=== PATIENT | male | born 1935 | race Caucasian/White ===

== ENCOUNTER 2022-05-14 12:07 | Observation (INO) | payer MEDICARE, BC ==
[2022-05-14 13:12] LABS: Basophils # (A) 0.1 k/uL (0-0.2); Basophils % (A) 2 %; Eosinophils # (A) 0.4 k/uL (0-0.7); Eosinophils % (A) 6 %; HCT 48.7 % (39.0-53.0); HGB 16.6 gm/dL (13.0-17.5); Lymphocytes # (A) 1.3 k/uL (1.0-4.8); Lymphocytes % (A) 19 %; MCH 32.1 pg (25.0-35.0); MCV 94.5 fL (80.0-100.0); Mean Platelet Volume 9.1; Monocytes # (A) 0.7 k/uL (0-1.0); Monocytes % (A) 11 %; Neutrophils # (A) 4.1 k/uL (1.3-7.7); Neutrophils % (A) 60 %; Platelet Count 141 k/uL (150-450); RBC 5.15 m/uL (4.30-5.90); RDW 13.3 % (11.5-15.5); WBC 6.8 k/uL (3.8-10.6)
--- NOTE | 2022-05-14 13:37 | ED ---
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 He denies any overt fevers chills or sweats he has exertional dyspnea however. He again is gotten worse today. 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 No other new complaints or modifying fa ctors at this time. He denies any cough or phlegm production. Also no history of COPD or emphysema he states MD Complaint: shortness of breath - Related Data Home Medications Medication Instructions Recorded Confirmed Aspirin EC [Ecotrin Low Dose] 81 mg PO DAILY 05/14/22 05/14/22 Clopidogrel [Plavix] 75 mg PO DAILY 05/14/22 05/14/22 Empagliflozin [Jardiance] 25 mg PO DAILY 05/14/22 05/14/22 Ergocalciferol (Vitamin D2) 1,250 mcg PO WEEKLY 05/14/22 05/14/22 [Drisdol (50,000 Iu)] Escitalopram [Lexapro] 10 mg PO HS 05/14/22 05/14/22 Insulin Glargine,Hum.rec.anlog 1 dose SQ AC-SUPPER 05/14/22 05/14/22 [Lantus Solostar Pen] Isosorbide Mononitrate ER [Imdur] 30 mg PO DAILY 05/14/22 05/14/22 Rosuvastatin [Crestor] 10 mg PO Q48H 05/14/22 05/14/22 carvediloL [Coreg] 12.5 mg PO BID 05/14/22 05/14/22 lisinopriL [Zestril] 5 mg PO DAILY 05/14/22 05/14/22 Allergies Allergy/AdvReac Type Severity Reaction Status Date / Time No Known Allergies Allergy Verified 05/14/22 13:49 Review of Systems ROS Statement: Those systems with pertinent positive or pertinent negative responses have been documented in the HPI. ROS Other: All systems not noted in ROS Statement are negative. Past Medical History Past Medical History: Chest Pain / Angina, Diabetes Mellitus, Hypertension Additional Past Medical History / Comment(s): rheumatic fever as child. heart murmur History of Any Multi-Drug Resistant Organisms: None Reported Additional Past Surgical History / Comment(s): open heart surgery for aortic valve Past Psychological History: No Psychological Hx Reported Smoking Status: Never smoker Past Alcohol Use History: None Reported Past Drug Use History: None Reported General Exam - General Exam Comments Initial Comments: This is a well-developed well-nourished awake alert oriented 4 male Limitations: no limitations General appearance: alert, anxious Head exam: Present: atraumatic, normocephalic, normal inspection Eye exam: Present: normal appearance, PERRL, EOMI. Absent: scleral icterus, conjunctival injection, periorbital swelling ENT exam: Present: normal exam, mucous membranes moist Neck exam: Present: normal inspection, full ROM, other. Absent: tenderness, meningismus, lymphadenopathy Respiratory exam: Present: decreased breath sounds (No stridor JVD or bruits), other (Basilar crepitus). Absent: respiratory distress, wheezes, rales, rhonchi, stridor Cardiovascular Exam: Present: normal rhythm, bradycardia, normal heart sounds. Absent: systolic murmur, diastolic murmur, rubs, gallop, clicks GI/Abdominal exam: Present: soft, normal bowel sounds. Absent: distended, tenderness, guarding, rebound, rigid Extremities exam: Present: normal inspection, full ROM, normal capillary refill. Absent: tenderness, pedal edema, joint swelling, calf tenderness Back exam: Present: normal inspection Neurological exam: Present: alert, oriented X3, CN II-XII intact Psychiatric exam: Present: normal affect, normal mood Skin exam: Present: warm, dry, intact, normal color. Absent: rash Course Vital Signs 05/14/22 05/14/22 12:11 13:06 Temperature 97.6 F Pulse Rate 48 L 92 Respiratory 20 Rate Blood Pressure 122/66 O2 Sat by Pulse 92 L Oximetry Medical Decision Making - Medical Decision Making I did evaluate the patient again patient still complains of his breath he now complains of some rhinorrhea. No other symptoms patient does have evidence and presents as a COPD exacerbation did discuss the case with patient family as well as Dr. Macedo. Patient be admitted and placed on treatment Cephid is pending at this time Was pt. sent in by a medical professional or institution? @ No-[by , ZACK, PROGRAM SUPERVISOR, urgent care, hospital, or [facility]] Did you speak to anyone other than the patient for history? @ Family-[EMS, parent, family, police, friend?] Did you review nursing and triage notes? @ Yes and agree-[agree or disagree, why?] Were old charts reviewed? @ Compared-[outside hosp., previous admissions, EMS record, old EKG, old radiological studies, urgent care reports/, [facility] records?] Differential Diagnosis? @ Dyspnea secondary to COPD exacerbation cardiovascular disease appears be secondary to COPD exacerbation yes-[chest pain, altered mental status abdominal pain women, abdominal pain men, vaginal bleeding, weakness, fever, dyspnea, syncope, headache, dizziness, GI bleed, back pain, seizure] EKG interpreted by me (3pts min.)? @ -As as above [none] X-rays interpreted by me (1pt min.)? @S as above-[none] CT interpreted by me (1pt min.)? @ -[none] U/S interpreted by me (1pt. min.)? @ -[none] What testing was considered but not performed? (CT, X-rays, U/S, labs)? Why? @ [CT, X-rays, U/S, labs? Why?] What meds were considered but not given? Why? @ -[none] Did you discuss the management of the patient with other professionals? @ Dr. Bravo-[professionals i.e. ZACK Kramer, PROGRAM SUPERVISOR, Lab, RT, Psych Nurse, Certified Marine Mechanic, Gasoline Finisher, Teacher, Travel Assistant, upper caser? Give summary] Did you reconcile home meds? @ -[none] Was smoking cessation discussed for >3mins.? @ -[none] Was critical care preformed (if so, how long)? @ -[none] Were there social determinants of health that impacted care today? How? (Homelessness, low income, unemployed, alcoholism, drug addiction, transportation, low edu. Level, literacy, decrease access to med. care, correction, rehab)? @ Not applicable -[Homelessness, low income, unemployed, alcoholism, drug addiction, transportation, low edu. Level, literacy, decrease access to med. c are, correction, rehab?] Was there de-escalation of care discussed even if they declined? (Discuss DNR or withdrawal of care, Hospice)? @ -[Discuss DNR or withdrawal of care, Hospice?] What co-morbidities impacted this encounter? (DM, HTN, Smoking, COPD, CAD, Cancer, CVA, Hep., AIDS, mental health diagnosis, sleep apnea, morbid obesity)? @ -[DM, HTN, Smoking, COPD, CAD, Cancer, CVA, Hep., AIDS, mental health diagnosis, sleep apnea, morbid obesity?] Was patient admitted / discharged? @ He was admitted-[hospital course] Undiagnosed new problem with uncertain prognosis? @ -[none] Drug Therapy requiring intensive monitoring for toxicity (Heparin, Nitro, Insulin, Cardizem)? @ -[none] Were any procedures done? @ -[none] Diagnosis/symptom? @ COPD exacerbation -[default] Acute, or Chronic, or Acute on Chronic? @ Acute exacerbation-[default] Uncomplicated (without systemic symptoms) or Complicated (systemic symptoms)? @ -[default] Side effects of treatment? @ -[none] Exacerbation, Progression, or Severe Exacerbation] @ Acute exacerbation -[no] Poses a threat to life or bodily function? @ -[no] - Lab Data Result diagrams: 05/14/22 13:51 05/14/22 13:51 Lab Results 05/14/22 05/14/22 05/14/22 Range/Units 12:53 12:53 12:53 WBC 6.8 (3.8-10.6) k/uL RBC 5.15 (4.30-5.90) m/uL Hgb 16.6 (13.0-17.5) gm/dL Hct 48.7 (39.0-53.0) % MCV 94.5 (80.0-100.0) fL MCH 32.1 (25.0-35.0) pg MCHC 34.0 (31.0-37.0) g/dL RDW 13.3 (11.5-15.5) % Plt Count 141 L (150-450) k/uL MPV 9.1 Neutrophils % 60 % Lymphocytes % 19 % Monocytes % 11 % Eosinophils % 6 % Basophils % 2 % Neutrophils # 4.1 (1.3-7.7) k/uL Lymphocytes # 1.3 (1.0-4.8) k/uL Monocytes # 0.7 (0-1.0) k/uL Eosinophils # 0.4 (0-0.7) k/uL Basophils # 0.1 (0-0.2) k/uL PT (9.0-12.0) sec INR (<1.2) APTT (22.0-30.0) sec Sodium (137-145) mmol/L Potassium (3.5-5.1) mmol/L Chloride (98-107) mmol/L Carbon Dioxide (22-30) mmol/L Anion Gap mmol/L BUN (9-20) mg/dL Creatinine (0.66-1.25) mg/dL Est GFR (CKD-EPI)AfAm (>60 ml/min/1.73 sqM) Est GFR (CKD-EPI)NonAf (>60 ml/min/1.73 sqM) Glucose (74-99) mg/dL Plasma Lactic Acid Robert 1.4 (0.7-2.0) mmol/L Calcium (8.4-10.2) mg/dL Magnesium (1.6-2.3) mg/dL Total Bilirubin (0.2-1.3) mg/dL AST (17-59) U/L ALT (4-49) U/L Alkaline Phosphatase (38-126) U/L Troponin I (0.000-0.034) ng/mL NT-Pro-B Natriuret Pep 353 pg/mL Total Protein (6.3-8.2) g/dL Albumin (3.5-5.0) g/dL 05/14/22 05/14/22 05/14/22 Range/Units 13:51 13:51 13:51 WBC 6.9 (3.8-10.6) k/uL RBC 5.01 (4.30-5.90) m/uL Hgb 16.3 (13.0-17.5) gm/dL Hct 47.4 (39.0-53.0) % MCV 94.5 (80.0-100.0) fL MCH 32.6 (25.0-35.0) pg MCHC 34.5 (31.0-37.0) g/dL RDW 13.2 (11.5-15.5) % Plt Count 160 (150-450) k/uL MPV 8.1 Neutrophils % 62 % Lymphocytes % 20 % Monocytes % 8 % Eosinophils % 6 % Basophils % 2 % Neutrophils # 4.2 (1.3-7.7) k/uL Lymphocytes # 1.4 (1.0-4.8) k/uL Monocytes # 0.5 (0-1.0) k/uL Eosinophils # 0.4 (0-0.7) k/uL Basophils # 0.1 (0-0.2) k/uL PT (9.0-12.0) sec INR (<1.2) APTT (22.0-30.0) sec Sodium 137 (137-145) mmol/L Potassium 4.8 (3.5-5.1) mmol/L Chloride 105 (98-107) mmol/L Carbon Dioxide 22 (22-30) mmol/L Anion Gap 10 mmol/L BUN 20 (9-20) mg/dL Creatinine 0.98 (0.66-1.25) mg/dL Est GFR (CKD-EPI)AfAm 82 (>60 ml/min/1.73 sqM) Est GFR (CKD-EPI)NonAf 71 (>60 ml/min/1.73 sqM) Glucose 210 H (74-99) mg/dL Plasma Lactic Acid Robert (0.7-2.0) mmol/L Calcium 9.1 (8.4-10.2) mg/dL Magnesium 2.0 (1.6-2.3) mg/dL Total Bilirubin 1.4 H (0.2-1.3) mg/dL AST 26 (17-59) U/L ALT 29 (4-49) U/L Alkaline Phosphatase 113 (38-126) U/L Troponin I <0.012 (0.000-0.034) ng/mL NT-Pro-B Natriuret Pep pg/mL Total Protein 7.9 (6.3-8.2) g/dL Albumin 4.5 (3.5-5.0) g/dL 05/14/22 Range/Units 13:51 WBC (3.8-10.6) k/uL RBC (4.30-5.90) m/uL Hgb (13.0-17.5) gm/dL Hct (39.0-53.0) % MCV (80.0-100.0) fL MCH (25.0-35.0) pg MCHC (31.0-37.0) g/dL RDW (11.5-15.5) % Plt Count (150-450) k/uL MPV Neutrophils % % Lymphocytes % % Monocytes % % Eosinophils % % Basophils % % Neutrophils # (1.3-7.7) k/uL Lymphocytes # (1.0-4.8) k/uL Monocytes # (0-1.0) k/uL Eosinophils # (0-0.7) k/uL Basophils # (0-0.2) k/uL PT 11.7 (9.0-12.0) sec INR 1.1 (<1.2) APTT 29.4 (22.0-30.0) sec Sodium (137-145) mmol/L Potassium (3.5-5.1) mmol/L Chloride (98-107) mmol/L Carbon Dioxide (22-30) mmol/L Anion Gap mmol/L BUN (9-20) mg/dL Creatinine (0.66-1.25) mg/dL Est GFR (CKD-EPI)AfAm (>60 ml/min/1.73 sqM) Est GFR (CKD-EPI)NonAf (>60 ml/min/1.73 sqM) Glucose (74-99) mg/dL Plasma Lactic Acid Robert (0.7-2.0) mmol/L Calcium (8.4-10.2) mg/dL Magnesium (1.6-2.3) mg/dL Total Bilirubin (0.2-1.3) mg/dL AST (17-59) U/L ALT (4-49) U/L Alkaline Phosphatase (38-126) U/L Troponin I (0.000-0.034) ng/mL NT-Pro-B Natriuret Pep pg/mL Total Protein (6.3-8.2) g/dL Albumin (3.5-5.0) g/dL - EKG Data -: EKG Interpreted by Me EKG Comments: EKG evaluated by me and interpreted by me showed a sinus rhythm with premature complexes rate 93. Interval 189 QRS duration 123 QT since QTC 33/433 left anterior fascicular block poor R-wave progression - Radiology Data Interpreted by me: Imaging turgor by me shows no acute processes. Disposition Clinical Impression: Acute exacerbation of chronic obstructive pulmonary disease, Dyspnea Disposition: ADMITTED IP TO THIS HOSP Condition: Stable Referrals: Shaquille Bravo MD [Primary Care Provider] - 1-2 days Decision Date: 05/14/22 Decision Time: 17:00
--- NOTE | 2022-05-14 13:56 | XR ---
EXAMINATION TYPE: XR chest 2V DATE OF EXAM: 05/14/2022 COMPARISON: None INDICATION: Difficulty breathing TECHNIQUE: Frontal and lateral views of the chest are obtained. FINDINGS: The heart size is normal. Sternotomy wires are present from prior cardiac valve surgery. Epicardial leads remain present. The pulmonary vasculature is normal. The lungs are clear. IMPRESSION: 1. No acute pulmonary process.
[2022-05-14 14:05] LABS: Basophils # (A) 0.1 k/uL (0-0.2); Basophils % (A) 2 %; Eosinophils # (A) 0.4 k/uL (0-0.7); Eosinophils % (A) 6 %; HCT 47.4 % (39.0-53.0); HGB 16.3 gm/dL (13.0-17.5); Lymphocytes # (A) 1.4 k/uL (1.0-4.8); Lymphocytes % (A) 20 %; MCH 32.6 pg (25.0-35.0); MCHC 34.5 g/dL (31.0-37.0); MCV 94.5 fL (80.0-100.0); Mean Platelet Volume 8.1; Monocytes # (A) 0.5 k/uL (0-1.0); Monocytes % (A) 8 %; Neutrophils # (A) 4.2 k/uL (1.3-7.7); Neutrophils % (A) 62 %; Platelet Count 160 k/uL (150-450); RBC 5.01 m/uL (4.30-5.90); RDW 13.2 % (11.5-15.5); WBC 6.9 k/uL (3.8-10.6)
[2022-05-14 14:16] LABS: Albumin 4.5 g/dL (3.5-5.0); Calcium 9.1 mg/dL (8.4-10.2); Potassium 4.8 mmol/L (3.5-5.1); Total Bilirubin 1.4 mg/dL (0.2-1.3); Total Protein 7.9 g/dL (6.3-8.2)
[2022-05-14 14:21] LABS: INR 1.1 (<1.2); Partial Thromboplastin Time 29.4 sec (22.0-30.0); Prothrombin Time 11.7 sec (9.0-12.0)
[2022-05-14] MEDS ORDERED: IPRATROPIUM-ALBUTEROL 3 ML NEB INHALATION STA (18:11)
[2022-05-14] MEDS ORDERED: methylPREDNISolone SOD SUCCI 125 MG/2 ML VIAL IV STA (18:11)
[2022-05-14] MEDS ORDERED: ACETAMINOPHEN TAB 325 MG TAB PO PRN (18:17)
[2022-05-14] MEDS ORDERED: NALOXONE 0.4 MG/ML 1 ML VIAL IVP PRN (18:17)
[2022-05-14] MEDS ORDERED: DEXTROSE 50% SYRINGE 50 ML IVP PRN ×4 (18:20→21:54)
[2022-05-14] MEDS ORDERED: ESCITALOPRAM 10 MG TAB PO SCH (21:00)
[2022-05-14 21:40] LABS: Glucose,Whole Blood 265 mg/dL (70-110)
--- NOTE | 2022-05-14 21:45 | CT ---
EXAM: CT Angiography Chest With Intravenous Contrast CLINICAL HISTORY: ITS.REASON CT Reason: PE suspected TECHNIQUE: Axial computed tomographic angiography images of the chest with intravenous contrast. CTDI is 18.47 mGy and DLP is 410 mGy-cm. This CT exam was performed using one or more of the following dose reduction techniques: automated exposure control, adjustment of the mA and/or kV according to patient size, and/or use of iterative reconstruction technique. MIP reconstructed images were created and reviewed. COMPARISON: No relevant prior studies available. FINDINGS: LUNGS: There is no focal infiltrate. There is no pleural effusion or pneumothorax. The tracheobronchial tree is patent. Dependent atelectasis. HEART: Cardiomegaly. No pericardial effusion. Prosthetic aortic valve. Sternotomy wires. VASCULATURE: No acute pulmonary embolism. Atherosclerotic changes. THYROID: Within normal limits. MEDIASTINUM + LYMPH NODES: There are no pathologically enlarged mediastinal, hilar, or axillary lymph nodes. SUPERIOR ABDOMEN: Hepatic steatosis. MUSCULOSKELETAL: Degenerative changes of the spine. IMPRESSION: No acute pulmonary embolism.
[2022-05-14] MEDS: carvediloL 12.5 MG TAB PO SCH (22:00)
[2022-05-14] MEDS: INSULIN ASPART (NovoLOG) 100 UNIT/ML VIAL SQ SCH (22:11)
[2022-05-14] MEDS: methylPREDNISolone SOD SUCCI 125 MG/2 ML VIAL IV SCH (23:06)
[2022-05-15 01:53] VITALS: RESP 16; TEMP 97.6
[2022-05-15 05:56] LABS: Glucose,Whole Blood 265 mg/dL (70-110)
[2022-05-15] MEDS: methylPREDNISolone SOD SUCCI 125 MG/2 ML VIAL IV SCH ×2 (06:08→12:46)
[2022-05-15] MEDS: INSULIN ASPART (NovoLOG) 100 UNIT/ML VIAL SQ SCH ×2 (06:09→12:46)
[2022-05-15] MEDS: carvediloL 12.5 MG TAB PO SCH (06:09)
[2022-05-15] MEDS: IPRATROPIUM-ALBUTEROL 3 ML NEB INHALATION PRN ×2 (07:43→11:43)
[2022-05-15 08:01] VITALS: BP 108/60
[2022-05-15] MEDS ORDERED: lisinopriL 5 MG TAB PO SCH (09:00)
[2022-05-15] MEDS ORDERED: CLOPIDOGREL 75 MG TAB PO SCH (09:00)
[2022-05-15] MEDS ORDERED: ASPIRIN 81 MG PO SCH (09:00)
[2022-05-15] MEDS ORDERED: ATORVASTATIN 20 MG TAB PO SCH (09:00)
[2022-05-15] MEDS ORDERED: ISOSORBIDE MONONITRATE ER 30 MG TAB.ER.24H PO SCH (09:00)
[2022-05-15] MEDS ORDERED: DAPAGLIFLOZIN PROPANEDIOL 10 MG TABLET PO SCH (09:00)
[2022-05-15 11:59] VITALS: PULSE 74
[2022-05-15 12:28] LABS: Glucose,Whole Blood 277 mg/dL (70-110)
--- NOTE | 2022-05-15 19:28 | P.HPIM ---
History of Present Illness H&P Date: 05/15/22 Chief Complaint: Worsening dyspnea History and Physical and Discharge Summary: This is a pleasant 86-year-old gentleman with past medical history of CABG/AVR, diabetes mellitus, hypertension, rheumatic fever, presented to the ER with worsening shortness of breath. 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 Complains of some nasal congestion, denies sore throat or plugged ears. Denies lightheadedness dizziness or focal deficits. Denies headache. Denies chest pain, palpitations. Troponin negative. EKG reporting sinus rhythm, left anterior fascicular block, PVCs. Electrolytes within normal limits. Reports has not been around anyone sick. Afebrile, normal WBC. D-dimer elevated 1.57. Chest CTA reported no acute PE. Chest x-ray reported no acute pulmonary pro cess. Influenza type a, type B, RSV and Covid not detected. A1c 8.4. BUN 20, creatinine 0.98. O2 sat of 92% on room air reported on arrival; with reports of patient did been into the mid 80s while resting. Supplements Oxygen, IV steroids, nebulized bronchodilators initiated with significant clinical improvement. Maintaining O2 sats in the mid 90s on 2 L nasal cannula. O2 sat 86% on room air at rest and will require Oxygen at discharge. Review of Systems ROS Statement: Those systems with pertinent positive or pertinent negative responses have been documented in the HPI. ROS Other: All systems not noted in ROS Statement are negative. Past Medical History Past Medical History: Chest Pain / Angina, Diabetes Mellitus, Hypertension Additional Past Medical History / Comment(s): rheumatic fever as child. heart murmur History of Any Multi-Drug Resistant Organisms: None Reported Additional Past Surgical History / Comment(s): open heart surgery for aortic valve Past Anesthesia/Blood Transfusion Reactions: No Reported Reaction Past Psychological History: No Psychological Hx Reported Smoking Status: Never smoker Past Alcohol Use History: None Reported Past Drug Use History: None Reported Medications and Allergies Home Medications Medication Instructions Recorded Confirmed Type Aspirin EC [Ecotrin Low Dose] 81 mg PO DAILY 05/14/22 05/14/22 History Clopidogrel [Plavix] 75 mg PO DAILY 05/14/22 05/14/22 History Empagliflozin [Jardiance] 25 mg PO DAILY 05/14/22 05/14/22 History Ergocalciferol (Vitamin D2) 1,250 mcg PO WEEKLY 05/14/22 05/14/22 History [Drisdol (50,000 Iu)] Escitalopram [Lexapro] 10 mg PO HS 05/14/22 05/14/22 History Insulin Glargine,Hum.rec.anlog 1 dose SQ AC-SUPPER 05/14/22 05/14/22 History [Lantus Solostar Pen] Isosorbide Mononitrate ER [Imdur] 30 mg PO DAILY 05/14/22 05/14/22 History Rosuvastatin [Crestor] 10 mg PO Q48H 05/14/22 05/14/22 History carvediloL [Coreg] 12.5 mg PO BID 05/14/22 05/14/22 History lisinopriL [Zestril] 5 mg PO DAILY 05/14/22 05/14/22 History Albuterol Inhaler [Ventolin Hfa 2 puff INHALATION Q6H PRN #90 mcg 05/15/22 Rx Inhaler] Azithromycin [Zithromax Z Pack] 1 tab PO DIRECTED #6 tab 05/15/22 Rx Budesonide/Formoterol Fumarate 2 puff INHALATION BID #10.2 gm 05/15/22 Rx [Symbicort 80-4.5 Mcg Inhaler] predniSONE 10 mg PO DIRECTED #30 tab 05/15/22 Rx Allergies Allergy/AdvReac Type Severity Reaction Status Date / Time No Known Allergies Allergy Verified 05/14/22 13:49 Physical Exam Vitals: Vital Signs Temp Pulse Pulse Resp BP BP Pulse Ox 05/15/22 11:57 74 05/15/22 11:43 72 05/15/22 08:07 78 05/15/22 08:01 74 108/60 98 05/15/22 07:47 76 95 05/15/22 01:50 97.6 F 73 16 102/58 95 05/14/22 20:10 81 05/14/22 20:00 97.3 F L 77 18 145/61 94 L 05/14/22 19:58 74 05/14/22 18:00 66 18 118/64 95 05/14/22 16:00 72 18 108/75 97 05/14/22 13:06 92 05/14/22 12:11 97.6 F 48 L 20 122/66 92 L Intake and Output 05/14/22 05/15/22 05/15/22 22:59 06:59 14:59 Intake Total 240 Balance 240 Intake: Oral 240 Other: Voiding Method Toilet Diaper Incontinent # Voids 1 1 Weight 83.461 kg PHYSICAL EXAM: VITAL SIGNS: [As above] GENERAL: Sitting up at side of bed, no acute distress HEENT: Conjunctivae normal. eyes normal. Oral mucosa moist NECK: Supple, No JVD. No thyroid enlargement. No LNs. CARDIOVASCULAR: S1, S2 regular. Systolic murmur RESPIRATION: Breath sounds diminished in the bases. No rhonchi or crackles. No bronchial breathing. ABDOMEN: Soft, nontender . No guarding. no masses palpable. No ascites, No hepatosplenomegaly.Bowel sounds heard. LEGS: No edema. no swelling PSYCHIATRY: Alert and oriented X3, mood and affect normal. NERVOUS SYSTEM: Cranial N 2-12 grossly normal. No focal deficits. Strength and sensation grossly intact.. Skin: Warm and dry, no rash Results CBC & Chem 7: 05/14/22 13:51 05/14/22 13:51 Labs: Abnormal Lab Results - Last 24 Hours (Table) 05/14/22 05/14/22 05/14/22 Range/Units 12:53 13:47 13:51 Plt Count 141 L (150-450) k/uL D-Dimer 1.57 H (<0.60) mg/L FEU Glucose 210 H (74-99) mg/dL POC Glucose (mg/dL) (70-110) mg/dL Hemoglobin A1c (0.0-6.0) % Total Bilirubin 1.4 H (0.2-1.3) mg/dL 05/14/22 05/14/22 05/15/22 Range/Units 13:51 21:38 05:54 Plt Count (150-450) k/uL D-Dimer (<0.60) mg/L FEU Glucose (74-99) mg/dL POC Glucose (mg/dL) 265 H 265 H (70-110) mg/dL Hemoglobin A1c 8.4 H (0.0-6.0) % Total Bilirubin (0.2-1.3) mg/dL Thrombosis Risk Factor Assmnt - Choose All That Apply Each Factor Represents 1 point: Abnormal pulmonary function (COPD), Obesity (BMI >25) Each Risk Factor Represents 3 Points: Age 75 years or older Thrombosis Risk Factor Assessment Total Risk Factor Score: 5 Thrombosis Risk Factor Assessment Level: High Risk Assessment and Plan Assessment: Acute COPD exacerbation Acute hypoxic respiratory failure secondary to the above Diabetes mellitus, A1c 8.4 CAD, hx of CABG/AVR History of rheumatic fever Plan: Continue on current medication regime ,monitoring and symptomatic treatment. Patient reports he feels better. Denies chest pain, palpitations or increased shortness of breath. Significant clinical improvement. The patient will be discharged home today in a stable condition with guarded prognosis, on prednisone taper, albuterol rescue inhaler, Symbicort, Z-Palmer and oxygen, as his O2 sat was 86% at rest. Patient has been advised to follow-up with PCP in 3 days. Discharge Medication List Aspirin EC [Ecotrin Low Dose] 81 mg PO DAILY 05/14/22 [History] Clopidogrel [Plavix] 75 mg PO DAILY 05/14/22 [History] Empagliflozin [Jardiance] 25 mg PO DAILY 05/14/22 [History] Ergocalciferol (Vitamin D2) [Drisdol (50,000 Iu)] 1,250 mcg PO WEEKLY 05/14/22 [History] Escitalopram [Lexapro] 10 mg PO HS 05/14/22 [History] Insulin Glargine,Hum.rec.anlog [Lantus Solostar Pen] 1 dose SQ AC-SUPPER 05/14/22 [History] Isosorbide Mononitrate ER [Imdur] 30 mg PO DAILY 05/14/22 [History] Rosuvastatin [Crestor] 10 mg PO Q48H 05/14/22 [History] carvediloL [Coreg] 12.5 mg PO BID 05/14/22 [History] lisinopriL [Zestril] 5 mg PO DAILY 05/14/22 [History] Albuterol Inhaler [Ventolin Hfa Inhaler] 2 puff INHALATION Q6H PRN #90 mcg 05/15/22 [Rx] Azithromycin [Zithromax Z Pack] 1 tab PO DIRECTED #6 tab 05/15/22 [Rx] Budesonide/Formoterol Fumarate [Symbicort 80-4.5 Mcg Inhaler] 2 puff INHALATION BID #10.2 gm 05/15/22 [Rx] predniSONE 10 mg PO DIRECTED #30 tab 05/15/22 [Rx] The impression and plan of care has been dictated as directed. : I performed a history and examination of this patient, discussed the same with the dictator. I agree with the dictator's note ,documented as a scribe. Any additional findings or plans will be noted.
[2022-05-21] MEDS ORDERED: ERGOCALCIFEROL 1,250 MCG (50,000 IU) CAPSULE PO SCH (09:00)
== END 2022-05-15 13:55 | disposition home or self-care (01) ==
LOC: EC 12:07 → INTOOBSV 18:17 → 4SSUR 18:17 → 5NMEDONC 20:37 → 1SOBS 21:20
PROVIDERS: ADMIT Family Medicine; ATTEND Family Medicine
DX: J44.1 Chronic obstructive pulmonary disease with (acute) exacerbation (principal); J96.01 Acute respiratory failure with hypoxia; I25.10 Atherosclerotic heart disease of native coronary artery without angina pectoris; E11.9 Type 2 diabetes mellitus without complications; I10 Essential (primary) hypertension; I69.354 Hemiplegia and hemiparesis following cerebral infarction affecting left non-dominant side; Z20.822 Contact with and (suspected) exposure to COVID-19; Z95.1 Presence of aortocoronary bypass graft; Z95.4 Presence of other heart-valve replacement; Z79.82 Long term (current) use of aspirin; Z79.02 Long term (current) use of antithrombotics/antiplatelets; Z79.84 Long term (current) use of oral hypoglycemic drugs; Z79.899 Other long term (current) drug therapy; Z79.4 Long term (current) use of insulin; Z79.51 Long term (current) use of inhaled steroids
CPT/HCPCS: 96372 ×2; 96376 ×2; 96374; 99285; 36415; 94640 ×2; 94760; 93005; 85379; 83880; 80053; 83605; 83735; 84484; 85025; 85610; 85730; 83036; 87636; 71046; 71275; G0378 ×2; J2930 ×2

== ENCOUNTER 2022-12-15 10:27 | Inpatient (IN) | payer MEDICARE, BC ==
[2022-12-15 11:14] LABS: Basophils # (A) 0.1 k/uL (0-0.2); Basophils % (A) 1 %; Eosinophils # (A) 0.5 k/uL (0-0.7); Eosinophils % (A) 6 %; HCT 47.2 % (39.0-53.0); HGB 16.4 gm/dL (13.0-17.5); Lymphocytes # (A) 1.5 k/uL (1.0-4.8); Lymphocytes % (A) 20 %; MCH 32.8 pg (25.0-35.0); MCHC 34.7 g/dL (31.0-37.0); MCV 94.7 fL (80.0-100.0); Mean Platelet Volume 8.3; Monocytes # (A) 0.8 k/uL (0-1.0); Monocytes % (A) 10 %; Neutrophils # (A) 4.6 k/uL (1.3-7.7); Neutrophils % (A) 60 %; Platelet Count 151 k/uL (150-450); RBC 4.99 m/uL (4.30-5.90); RDW 12.8 % (11.5-15.5); WBC 7.6 k/uL (3.8-10.6)
[2022-12-15 11:21] LABS: Prothrombin Time 10.7 sec (9.0-12.0)
--- NOTE | 2022-12-15 11:29 | ED ---
General Adult HPI - General Chief complaint: Weakness Stated complaint: weakness Time Seen by Provider: 12/15/22 10:43 Source: patient, family Mode of arrival: wheelchair Limitations: no limitations - History of Present Illness Initial comments: Dictation was produced using [employer] dictation software. please excuse any grammatical, word or spelling errors. Chief Complaint: 87-year-old male presents emergency department for weakness, fall and shortness of breath History of Present Illness: 87-year-old male presents emergency department for this. He also complains of shortness of breath. History of present illness obtained from patient and was sitting at the bedside. She has been suffering from weakness for several months. He fell last week. He did not seek medical attention after that. Patient seen by control systems designer recently had his Lasix discontinued due to some progressive diarrhea. Patient denies any nausea vomiting does complain of some exertional dyspnea. No chest pain. Denies any constitutional symptoms. No cough The ROS documented in this emergency department record has been reviewed and confirmed by me. Those systems with pertinent positive or negative responses have been documented in the HPI. All other systems are other negative and/or noncontributory. - Related Data Home Medications Medication Instructions Recorded Confirmed Aspirin EC [Ecotrin Low Dose] 81 mg PO DAILY 05/14/22 12/15/22 Clopidogrel [Plavix] 75 mg PO DAILY 05/14/22 12/15/22 Ergocalciferol (Vitamin D2) 1,250 mcg PO MO 05/14/22 12/15/22 [Drisdol (50,000 Iu)] Escitalopram [Lexapro] 10 mg PO HS 05/14/22 12/15/22 Insulin Glargine,Hum.rec.anlog 28 - 38 units SQ AC-SUPPER 05/14/22 12/15/22 [Lantus Solostar Pen] Isosorbide Mononitrate ER [Imdur] 30 mg PO DAILY 05/14/22 12/15/22 Rosuvastatin [Crestor] 10 mg PO HS 05/14/22 12/15/22 carvediloL [Coreg] 12.5 mg PO BID 05/14/22 12/15/22 lisinopriL [Zestril] 5 mg PO DAILY 05/14/22 12/15/22 Albuterol Inhaler [Ventolin Hfa 2 puff INHALATION RT-BID PRN 12/15/22 12/15/22 Inhaler] Budesonide/Formoterol Fumarate 1 puff INHALATION RT-BID 12/15/22 12/15/22 [Symbicort 160-4.5 Mcg Inhaler] Cetirizine HCl [Zyrtec] 10 mg PO DAILY 12/15/22 12/15/22 Glimepiride [Amaryl] 2 mg PO DAILY 12/15/22 12/15/22 Montelukast [Singulair] 10 mg PO DAILY 12/15/22 12/15/22 Allergies Allergy/AdvReac Type Severity Reaction Status Date / Time No Known Allergies Allergy Verified 12/15/22 12:13 Review of Systems ROS Statement: Those systems with pertinent positive or pertinent negative responses have been documented in the HPI. ROS Other: All systems not noted in ROS Statement are negative. Past Medical History Past Medical History: Chest Pain / Angina, Diabetes Mellitus, Hypertension Additional Past Medical History / Comment(s): rheumatic fever as child. heart murmur History of Any Multi-Drug Resistant Organisms: None Reported Additional Past Surgical History / Comment(s): open heart surgery for aortic valve Past Anesthesia/Blood Transfusion Reactions: No Reported Reaction Past Psychological History: No Psychological Hx Reported Smoking Status: Never smoker Past Alcohol Use History: None Reported Past Drug Use History: None Reported General Exam - General Exam Comments Initial Comments: PHYSICAL EXAM: General Impression: Alert and oriented x3, not in acute distress, mild pale or HEENT: Normocephalic atraumatic, extra-ocular movements intact, pupils equal and reactive to light bilaterally, mucous membranes moist. Cardiovascular: Heart regular rate and rhythm Chest: Able to complete full sentences, no retractions, no tachypnea Abdomen: abdomen soft, non-tender, non-distended, no organomegaly Musculoskeletal: Pulses present and equal in all extremities, no peripheral edema Motor: no focal deficits noted Neurological: CN II-XII grossly intact, no focal motor or sensory deficits noted Skin: Intact with no visualized rashes Psych: Normal affect and mood Limitations: no limitations Course Vital Signs 12/15/22 12/15/22 12/15/22 10:37 11:00 11:17 Temperature 97.9 F Pulse Rate 48 L 66 Respiratory 20 22 22 Rate Blood Pressure 73/52 99/56 O2 Sat by Pulse 94 L 93 L Oximetry 12/15/22 12/15/22 12/15/22 11:51 12:30 13:30 Temperature 97 F L Pulse Rate 66 79 77 Respiratory 18 Rate Blood Pressure 101/73 91/75 109/63 O2 Sat by Pulse 94 L 93 L 92 L Oximetry EKG Findings - EKG Comments: EKG Findings:: My EKG interpretation: Ventricular rate 72, sinus rhythm, SC interval 210, QRS 144, QTC 437. No SC prolongation, no QTC prolongation, no ST or T-wave changes noted. Overall, this EKG is unremarkable Medical Decision Making - Medical Decision Making Was pt. sent in by a medical professional or institution (, PA, OPHTHALMIC LENS INSPECTOR, urgent care, hospital, or [place] health care facility...) When possible be specific @ -No Did you speak to anyone other than the patient for history (EMS, parent, family, police, friend...)? What history was obtained from this source @ -No Did you review nursing and triage notes (agree or disagree)? Why? @ -I reviewed and agree with nursing and triage notes Were old charts reviewed (outside hosp., previous admission, EMS record, old EKG, old radiological studies, urgent care reports/EKG's, [place] health care facility records)? Report findings @ -No old charts were reviewed Differential Diagnosis (chest pain, altered mental status, abdominal pain women, abdominal pain men, vaginal bleeding, musculoskeletal, weakness, fever, dyspnea, syncope, headache, dizziness, GI bleed, back pain, seizure, CVA, palpatations, mental health)? @ -Differential Weakness: Hypoglycemia, shock, sepsis, hyponatremia, anemia, infection, [place], ETOH, adverse medicine reaction, overdose, stroke, this is not meant to be an all-inclusive list. EKG interpreted by me (3pts min.). @ -See above X-rays interpreted by me (1pt min.). @ -None done CT interpreted by me (1pt min.). @ -Computed tomography scan of the head and C-spine shows no acute processes. CT chest shows no injuries. No rib fractures U/S interpreted by me (1pt. min.). @ -None done What testing was considered but not performed or refused? (CT, X-rays, U/S, labs)? Why? @ -None What meds were considered but not given or refused? Why? @ -None Did you discuss the management of the patient with other professionals (professionals i.e. DrBartolo, PA, OPHTHALMIC LENS INSPECTOR, lab, RT, psych nurse, adoption social worker, trial lawyer, teacher, cra officer, pillowcase maker)? Give summary @ -Discussed with Dr. Bravo for admission. Was smoking cessation discussed for >3mins.? @ -No Was critical care preformed (if so, how long)? @ -No Were there social determinants of health that impacted care today? How? (Homelessness, low income, unemployed, alcoholism, drug addiction, transportation, low edu. Level, literacy, decrease access to med. care, senior care, rehab)? @ -No Was there de-escalation of care discussed even if they declined (Discuss DNR or withdrawal of care, Hospice)? DNR status @ -No What co-morbidities impacted this encounter? (DM, HTN, Smoking, COPD, CAD, Cancer, CVA, ARF, Chemo, Hep., AIDS, mental health diagnosis, sleep apnea, morbid obesity)? @ -None Was patient admitted / discharged? Hospital course, mention meds given and route, prescriptions, significant lab abnormalities, going to OR and other pertinent info. @ -87-year-old male presents emergency 5 for worsening weakness and exertional dyspnea. reports that he has been aggressively diuresed recently. He has his diuretic medications discontinued. Vital signs upon arrival shows blood pressure 99/56, subsequent blood pressures over the next several hours were stable. Patient given IV fluids. Metabolic panel shows findings to suggest dehydration. Patient will be admitted for observation for IV dehydration Undiagnosed new problem with uncertain prognosis? @ -No Drug Therapy requiring intensive monitoring for toxicity (Heparin, Nitro, Insulin, Cardizem)? @ -No Were any procedures done? @ -No Diagnosis/symptom? Acute, or Chronic, or Acute on Chronic? Uncomplicated (without systemic symptoms) or Complicated (systemic symptoms)? @ -1. Dehydration, complicated by hypertension Side effects of treatment? @ -No Exacerbation, Progression, or Severe Exacerbation? @ -No Poses a threat to life or bodily function? How? (Chest pain, [place], [place], pneumonia, PE, COPD, DKA, ARF, appy, cholecystitis, CVA, Diverticulitis, Homicidal, Suicidal, threat to staff... and all critical care pts) @ -yes - Lab Data Result diagrams: 08/07/23 11:02 12/15/22 11:02 Lab Results 12/15/22 12/15/22 12/15/22 Range/Units 11:02 11:02 11:02 WBC 7.6 (3.8-10.6) k/uL RBC 4.99 (4.30-5.90) m/uL Hgb 16.4 (13.0-17.5) gm/dL Hct 47.2 (39.0-53.0) % MCV 94.7 (80.0-100.0) fL MCH 32.8 (25.0-35.0) pg MCHC 34.7 (31.0-37.0) g/dL RDW 12.8 (11.5-15.5) % Plt Count 151 (150-450) k/uL MPV 8.3 Neutrophils % 60 % Lymphocytes % 20 % Monocytes % 10 % Eosinophils % 6 % Basophils % 1 % Neutrophils # 4.6 (1.3-7.7) k/uL Lymphocytes # 1.5 (1.0-4.8) k/uL Monocytes # 0.8 (0-1.0) k/uL Eosinophils # 0.5 (0-0.7) k/uL Basophils # 0.1 (0-0.2) k/uL PT 10.7 (9.0-12.0) sec INR 1.0 (<1.2) APTT 26.0 (22.0-30.0) sec Sodium 132 L (137-145) mmol/L Potassium 5.2 H (3.5-5.1) mmol/L Chloride 97 L (98-107) mmol/L Carbon Dioxide 24 (22-30) mmol/L Anion Gap 11 mmol/L BUN 56 H (9-20) mg/dL Creatinine 1.46 H (0.66-1.25) mg/dL Est GFR (CKD-EPI)AfAm 50 (>60 ml/min/1.73 sqM) Est GFR (CKD-EPI)NonAf 43 (>60 ml/min/1.73 sqM) Glucose 248 H (74-99) mg/dL POC Glucose (mg/dL) (70-110) mg/dL POC Glu Curtain Fitter ID Calcium 8.9 (8.4-10.2) mg/dL Magnesium 2.2 (1.6-2.3) mg/dL Total Bilirubin 1.5 H (0.2-1.3) mg/dL AST 32 (17-59) U/L ALT 31 (4-49) U/L Alkaline Phosphatase 79 (38-126) U/L Troponin I (0.000-0.034) ng/mL Total Protein 7.7 (6.3-8.2) g/dL Albumin 4.2 (3.5-5.0) g/dL 12/15/22 12/15/22 Range/Units 11:02 13:32 WBC (3.8-10.6) k/uL RBC (4.30-5.90) m/uL Hgb (13.0-17.5) gm/dL Hct (39.0-53.0) % MCV (80.0-100.0) fL MCH (25.0-35.0) pg MCHC (31.0-37.0) g/dL RDW (11.5-15.5) % Plt Count (150-450) k/uL MPV Neutrophils % % Lymphocytes % % Monocytes % % Eosinophils % % Basophils % % Neutrophils # (1.3-7.7) k/uL Lymphocytes # (1.0-4.8) k/uL Monocytes # (0-1.0) k/uL Eosinophils # (0-0.7) k/uL Basophils # (0-0.2) k/uL PT (9.0-12.0) sec INR (<1.2) APTT (22.0-30.0) sec Sodium (137-145) mmol/L Potassium (3.5-5.1) mmol/L Chloride (98-107) mmol/L Carbon Dioxide (22-30) mmol/L Anion Gap mmol/L BUN (9-20) mg/dL Creatinine (0.66-1.25) mg/dL Est GFR (CKD-EPI)AfAm (>60 ml/min/1.73 sqM) Est GFR (CKD-EPI)NonAf (>60 ml/min/1.73 sqM) Glucose (74-99) mg/dL POC Glucose (mg/dL) 188 H (70-110) mg/dL POC Glu Curtain Fitter Julito Ortega Calcium (8.4-10.2) mg/dL Magnesium (1.6-2.3) mg/dL Total Bilirubin (0.2-1.3) mg/dL AST (17-59) U/L ALT (4-49) U/L Alkaline Phosphatase (38-126) U/L Troponin I <0.012 (0.000-0.034) ng/mL Total Protein (6.3-8.2) g/dL Albumin (3.5-5.0) g/dL Disposition Clinical Impression: Dehydration Disposition: ADMITTED IP TO THIS HOSP Condition: Fair Referrals: Shaquille Bravo MD [Primary Care Provider] - 1-2 days Decision Time: 14:01
[2022-12-15 11:36] LABS: ALT 31 U/L (4-49); African American GFR (CKD) 50 (>60 ml/min/1.73 sqM); Albumin 4.2 g/dL (3.5-5.0); Anion Gap 11 mmol/L; Blood Urea Nitrogen 56 mg/dL (9-20); Calcium 8.9 mg/dL (8.4-10.2); Carbon Dioxide 24 mmol/L (22-30); Chloride 97 mmol/L (98-107); Glucose 248 mg/dL (74-99); Non-African American GFR(CKD) 43 (>60 ml/min/1.73 sqM); Sodium 132 mmol/L (137-145); Total Bilirubin 1.5 mg/dL (0.2-1.3); Total Protein 7.7 g/dL (6.3-8.2)
[2022-12-15] MEDS ORDERED: SODIUM CHLORIDE 0.9% 1,000 ML IV STA (11:41)
[2022-12-15 11:43] LABS: AST 32 U/L (17-59); Alkaline Phosphatase 79 U/L (38-126); Magnesium 2.2 mg/dL (1.6-2.3); Potassium 5.2 mmol/L (3.5-5.1)
--- NOTE | 2022-12-15 12:07 | CT ---
EXAMINATION TYPE: CT brain dottie wo con DATE OF EXAM: 12/15/2022 COMPARISON: None HISTORY: Fall CT DLP: 1398.9 mGycm, Automated exposure control for dose reduction was used. CONTRAST: Patient injected with 0 mL of Isovue 300. CT of the brain is performed utilizing 3 mm thick sections through the posterior fossa and 3 mm thick sections through the remaining calvarium. Study is performed within 24 hours of arrival to the hospital. No abnormal hyperdensity is present to suggest an acute intracranial hemorrhage. No mass lesion is evident. No acute infarcts are evident. Old infarct in the right basal ganglia and periventricular white lita er. Expected to affect is evident on the lateral ventricle. Ventricles and sulci are appropriate for the patient age. There is opacification of the left maxillary sinus. Remaining paranasal sinuses and mastoid air cells are clear. IMPRESSIONS: 1. 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 Ex vacuo effect is eviden t. 2. No acute intracranial process. Follow-up MRI can be performed as clinically indicated. CT cervical spine. COMPARISON: None CT of the cervical spine is performed in the axial plane at 2 mm thick sections. Reconstructed image s in the coronal, and sagittal plane are reviewed on the computer. No acute fractures are evident. Vertebral body alignment is normal. Disc heights are preserved. Vertebral body heights are preserved. No spinal canal stenosis is evident. Posterior longitudinal ligament calcification may be present at the C4-5 level. Uncovertebral joint hypertrophy has severe right foraminal stenosis C3-4. Moderate left foraminal tru nosis at C4-5 is present from uncovertebral joint for the period IMPRESSIONS: 1. No acute osseous abnormality cervical spine. 2. Foraminal narrowing upper cervical spine discussed above
--- NOTE | 2022-12-15 12:11 | CT ---
EXAMINATION TYPE: CT chest wo con DATE OF EXAM: 12/15/2022 COMPARISON: 05/14/2022 HISTORY: Fall CT DLP: 423.3 mGycm, Automated exposure control for dose reduction was used. CONTRAST: Normal TECHNIQUE: Axial images were obtained at 5 mm thick sections. Reconstructed images are reviewed on [employer] computer in the coronal plane. FINDINGS: There is minimal visualization of the thyroid. 0.8 cm calcification anterolateral right lung base. No pneumothorax is evident. No pulmonary contusion is evident. No enlarged mediastinal or hilar adenopathy is evident. The ascending aorta diameter at the level o f the main pulmonary artery is 4.4 cm. The main pulmonary artery diameter at the bifurcation is 3.4 cm. Moderate coronary artery calcification is present. Limited CT sections are obtained through the upper abdomen. Abdomen is essentially unremarkable. No displaced rib fractures are evident. IMPRESSIONS: 1. No acute pulmonary process.
[2022-12-15 13:34] LABS: Glucose,Whole Blood 188 mg/dL (70-110)
[2022-12-15] MEDS ORDERED: NALOXONE 0.4 MG/ML 1 ML VIAL IV PRN (13:56)
[2022-12-15] MEDS: SODIUM CHLORIDE 0.9% 1,000 ML IV SCH (14:22)
[2022-12-15] MEDS ORDERED: DEXTROSE 50% SYRINGE 50 ML IVP PRN ×2 (17:55)
[2022-12-15 20:09] LABS: Glucose,Whole Blood 225 mg/dL (70-110)
[2022-12-15] MEDS: INSULIN ASPART (NovoLOG) 100 UNIT/ML VIAL SQ SCH (21:50)
[2022-12-15] MEDS ORDERED: ACETAMINOPHEN TAB 325 MG TAB PO PRN (22:01)
[2022-12-15] MEDS ORDERED: ALBUTEROL NEBULIZED 2.5 MG/3 ML INHALATION PRN (22:55)
[2022-12-16] MEDS: ESCITALOPRAM 10 MG TAB PO SCH ×2 (00:13→22:04)
[2022-12-16] MEDS: SODIUM CHLORIDE 0.9% 1,000 ML IV SCH (04:26)
[2022-12-16 07:29] LABS: Glucose,Whole Blood 95 mg/dL (70-110)
[2022-12-16] MEDS: INSULIN ASPART (NovoLOG) 100 UNIT/ML VIAL SQ SCH ×4 (07:34→22:03)
[2022-12-16] MEDS: ASPIRIN 81 MG PO SCH (08:41)
[2022-12-16] MEDS: carvediloL 12.5 MG TAB PO SCH ×2 (08:41→20:44)
[2022-12-16] MEDS: MONTELUKAST 10 MG TAB PO SCH (08:42)
[2022-12-16] MEDS: lisinopriL 5 MG TAB PO SCH (08:42)
[2022-12-16] MEDS: ISOSORBIDE MONONITRATE ER 30 MG TAB.ER.24H PO SCH (08:42)
[2022-12-16] MEDS: CLOPIDOGREL 75 MG TAB PO SCH (08:42)
[2022-12-16 09:12] LABS: African American GFR (CKD) 68 (>60 ml/min/1.73 sqM); Anion Gap 8 mmol/L; Blood Urea Nitrogen 33 mg/dL (9-20); Calcium 8.5 mg/dL (8.4-10.2); Carbon Dioxide 22 mmol/L (22-30); Chloride 106 mmol/L (98-107); Glucose 95 mg/dL (74-99); Non-African American GFR(CKD) 59 (>60 ml/min/1.73 sqM); Potassium 4.5 mmol/L (3.5-5.1); Sodium 136 mmol/L (137-145)
[2022-12-16] MEDS ORDERED: FUROSEMIDE 20 MG TAB PO SCH (12:00)
[2022-12-16 12:05] LABS: Glucose,Whole Blood 152 mg/dL (70-110)
[2022-12-16] MEDS: SYMBICORT 160-4.5 MCG INHALER INHALATION SCH ×2 (12:27→20:41)
--- NOTE | 2022-12-16 12:30 | CA ---
Transthoracic Echo Report Name: Jermaine Hitchcock Age: 87 Gender: M : 1935 Exam Date: 12/16/2022 11:18 Exam Location: [facility] Ht (in): 69 Wt (lb): 184 Ordering Physician: Theresa Jean Attending/Referring Phys: [id number], Ted Child Care Associate Teacher Bryn Quezada Procedure CPT: Indications: LVF Cardiac Hx: Technical Quality: Fair Contrast 1: Total Dose (mL): Contrast 2: Total Dose (mL): MEASUREMENTS (Male / Female) Normal Values 2D ECHO RV Internal Dim ED PLAX 3.6 cm LVOT Diameter 2.8 cm Aortic Root Diameter 3.2 cm LA Systolic Diameter LX 3.3 cm 3.0 - 4.0 / 2.7 - 3.8 cm LV Diastolic Volume MOD BP 61.7 cm??? 67 - 155 / 56 - 104 cm??? LV Systolic Volume MOD BP 31.0 cm??? 22 - 58 / 19 - 49 cm??? LV Ejection Fraction MOD BP 49.8 % >= 55 % LV Cardiac Index MOD BP 1299.0 cm???/min???m??? LV Diastolic Volume MOD 4C 72.8 cm??? LV Systolic Volume MOD 4C 36.0 cm??? LV Ejection Fraction MOD 4C 50.5 % LV Cardiac Index MOD 4C 1557.2 cm???/min???m??? LV Diastolic Length 4C 7.4 cm LV Systolic Length 4C 7.2 cm LV Diastolic Volume MOD 2C 48.6 cm??? LV Systolic Volume MOD 2C 25.2 cm??? LV Ejection Fraction MOD 2C 48.1 % LV Cardiac Index MOD 2C 990.1 cm???/min???m??? LV Diastolic Length 2C 6.8 cm LV Systolic Length 2C 6.7 cm LA Volume 71.8 cm??? 18 - 58 / 22 - 52 cm??? Ascending Aorta Diameter 3.7 cm DOPPLER AV Peak Velocity 226.0 cm/s AV Peak Gradient 20.4 mmHg AV Mean Velocity 179.5 cm/s AV Mean Gradient 13.7 mmHg AV Velocity Time Integral 46.0 cm LVOT Peak Velocity 50.7 cm/s LVOT Peak Gradient 1.0 mmHg AV Area Cont Eq pk 1.3 cm??? MV Peak Velocity 75.8 cm/s MV Peak Gradient 2.3 mmHg MV Mean Velocity 43.7 cm/s MV Mean Gradient 0.9 mmHg MV Velocity Time Integral 24.8 cm MR Peak Velocity 285.8 cm/s MR Peak Gradient 32.7 mmHg Mitral E Point Velocity 70.3 cm/s Mitral A Point Velocity 80.0 cm/s Mitral E to A Ratio 0.9 MV Deceleration Time 172.9 ms TR Peak Velocity 245.8 cm/s TR Peak Gradient 24.2 mmHg Right Ventricular Systolic Press 29.4 mmHg PV Peak Velocity 59.8 cm/s PV Peak Gradient 1.4 mmHg FINDINGS Left Ventricle Mildly decreased left ventricular ejection fraction. Left ventricular ejection fraction is estimated at 35-40 %. There is moderate global decrease in contractility Right Ventricle Normal right ventricular size. RVSP= 32mmhg. Right Atrium Mild to moderate right atrial dilatation. Left Atrium Moderately increased left atrial volume. Mildly increased left atrial area. LA volume index= 36ml/m2 Mitral Valve Structurally normal mitral valve. Mild to moderate MR. Aortic Valve AV Prosthesis. No aortic regurgitation. Tricuspid Valve Structurally normal tricuspid valve. Mild TR. Pulmonic Valve Pulmonic valve not well visualized. No pulmonic regurgitation. Pericardium Normal pericardium. Aorta Normal size aortic root . CONCLUSIONS Left ventricle is of a normal size with mild to moderate global decrease in contractility. Both atria are enlarged. 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 There is mild to moderate mitral regurgitation. No pericardial effusion no significant the pulmonary hypertension Previewed by: Dr. Eneida Barillas MD (Electronically Signed) Final Date: 16 December 2022 12:29
[2022-12-16] MEDS: LACTOBACILLUS ACIDOPHILUS/PECT 1 EACH CAPSULE PO SCH (12:52)
[2022-12-16] MEDS: PANTOPRAZOLE 40 MG/10 ML VIAL IVP SCH (12:52)
--- NOTE | 2022-12-16 13:27 | P.HPIM ---
History of Present Illness H&P Date: 12/16/22 Chief Complaint: Weakness, shortness of breath This is an 87-year-old gentleman with past medical history significant for CABG/AVR, diabetes mellitus, hypertension, rheumatic fever, presented to the ER with complaints of progressive weakness, shortness of breath, diarrhea, recent fall last week and multiple other medical issues. reported he had been aggressively diuresed recently. 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 Reports 3 episodes of diarrhea this morning. Denies abdominal pain. Telemetry reporting couplets and bigeminy this morning. Magnesium 2.2 yesterday. Potassium 4.5. Denies chest pain, palpitations. Troponins negative 1, EKG reporting sinus rhythm with first-degree AV block, right bundle branch block, left anterior fascicular block Reports shortness of breath, mild sinus congestion. Hypotensive on admission, with systolic blood pressures in the 70s, received IV fluid hydration, imp roving. Negative for orthostatic hypotension. Supplemental oxygen weaned off. Afebrile, normal WBC. Hemoglobin 16.4, platelets 151, INR 1. Sodium 136, potassium 4.5, bicarb 22, BUN 56/1.46 improved with IV fluid hydration, currently BUN 33/creatinine 1.14. Blood sugars currently controlled, ranging from 95-225. Hemoglobin A1c 7.5. Head/cervical spine CT reported old right basal ganglion infarct with extension into the pérez radiata. Ex vacuo affect is evident. No acute intracranial process, no acute osseous abnormality C- spine, foraminal narrowing upper cervical spine. Chest CT reported no acute pulmonary process, no displaced rib fractures evident. Review of Systems ROS Statement: Those systems with pertinent positive or pertinent negative responses have been documented in the HPI. ROS Other: All systems not noted in ROS Statement are negative. Past Medical History Past Medical History: Chest Pain / Angina, Heart Failure, CVA/TIA, Diabetes Mellitus, Hypertension Additional Past Medical History / Comment(s): rheumatic fever as child. 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 History of Any Multi-Drug Resistant Organisms: None Reported Past Surgical History: Appendectomy Additional Past Surgical History / Comment(s): 2018 open heart surgery for aortic valve Past Anesthesia/Blood Transfusion Reactions: No Reported Reaction Past Psychological History: Depression Smoking Status: Never smoker Past Alcohol Use History: None Reported Past Drug Use History: None Reported - Past Family History Mother Family Medical History: Rheumatoid Arthritis (RA) Father Additional Family Medical History / Comment(s): at 75 years old with alzheimer's Medications and Allergies Home Medications Medication Instructions Recorded Confirmed Type Aspirin EC [Ecotrin Low Dose] 81 mg PO DAILY 05/14/22 12/15/22 History Clopidogrel [Plavix] 75 mg PO DAILY 05/14/22 12/15/22 History Ergocalciferol (Vitamin D2) 1,250 mcg PO MO 05/14/22 12/15/22 History [Drisdol (50,000 Iu)] Escitalopram [Lexapro] 10 mg PO HS 05/14/22 12/15/22 History Insulin Glargine,Hum.rec.anlog 28 - 38 units SQ HS 05/14/22 12/15/22 History [Lantus Solostar Pen] Isosorbide Mononitrate ER [Imdur] 30 mg PO DAILY 05/14/22 12/15/22 History Rosuvastatin [Crestor] 10 mg PO HS 05/14/22 12/15/22 History carvediloL [Coreg] 12.5 mg PO BID 05/14/22 12/15/22 History lisinopriL [Zestril] 5 mg PO DAILY 05/14/22 12/15/22 History Albuterol Inhaler [Ventolin Hfa 2 puff INHALATION RT-BID PRN 12/15/22 12/15/22 History Inhaler] Budesonide/Formoterol Fumarate 1 puff INHALATION RT-BID 12/15/22 12/15/22 History [Symbicort 160-4.5 Mcg Inhaler] Cetirizine HCl [Zyrtec] 10 mg PO DAILY 12/15/22 12/15/22 History Glimepiride [Amaryl] 2 mg PO AC-BID 12/15/22 12/15/22 History Montelukast [Singulair] 10 mg PO DAILY 12/15/22 12/15/22 History Allergies Allergy/AdvReac Type Severity Reaction Status Date / Time No Known Allergies Allergy Verified 12/15/22 12:13 Physical Exam Vitals: Vital Signs Temp Pulse Pulse Pulse Pulse Resp BP 12/16/22 07:30 98 F 65 18 12/16/22 01:36 12/16/22 01:26 97.3 F L 69 18 12/15/22 20:00 16 12/15/22 19:21 97.5 F L 69 16 12/15/22 15:25 97.4 F L 69 75 63 18 12/15/22 14:48 67 73 68 12/15/22 14:30 69 100/71 12/15/22 14:00 106/72 12/15/22 13:30 77 109/63 12/15/22 12:30 79 91/75 12/15/22 11:51 97 F L 66 18 101/73 12/15/22 11:17 22 BP BP BP Pulse Ox FiO2 12/16/22 07:30 110/69 94 L 12/16/22 01:36 119/71 123/63 115/65 12/16/22 01:26 115/65 93 L 12/15/22 20:00 12/15/22 19:21 104/63 93 L 12/15/22 15:25 111/71 110/72 109/65 98 12/15/22 14:48 122/66 100/71 112/65 12/15/22 14:30 93 L 12/15/22 14:00 93 L 12/15/22 13:30 92 L 12/15/22 12:30 93 L 12/15/22 11:51 94 L 12/15/22 11:17 Intake and Output 12/15/22 12/16/22 12/16/22 22:59 06:59 14:59 Other: Voiding Method Toilet # Voids 2 5 1 # Bowel Movements 1 Weight 83.461 kg PHYSICAL EXAM: VITAL SIGNS: [As above] GENERAL: Sitting up in chair, no acute distress HEENT: Normocephalic, Conjunctivae normal. eyes normal. Oral mucosa moist NECK: Supple, No JVD. No thyroid enlargement. No LNs. CARDIOVASCULAR: S1, S2 regular. Systolic murmur RESPIRATION: Breath sounds diminished in the bases. No rhonchi or crackles. No bronchial breathing. ABDOMEN: Soft, nontender . No guarding. no masses palpable. No ascites, No hepatosplenomegaly.Bowel sounds heard. LEGS: No edema. no swelling PSYCHIATRY: Alert and oriented X3, mood and affect normal. NERVOUS SYSTEM: Cranial N 2-12 grossly normal. No focal deficits. Strength and sensation grossly intact. Skin: Warm and dry, no rash Results CBC & Chem 7: 12/15/22 11:02 12/16/22 06:06 Labs: Abnormal Lab Results - Last 24 Hours (Table) 12/15/22 12/15/22 12/15/22 Range/Units 11:02 13:32 20:08 Sodium 132 L (137-145) mmol/L Potassium 5.2 H (3.5-5.1) mmol/L Chloride 97 L (98-107) mmol/L BUN 56 H (9-20) mg/dL Creatinine 1.46 H (0.66-1.25) mg/dL Glucose 248 H (74-99) mg/dL POC Glucose (mg/dL) 188 H 225 H (70-110) mg/dL Hemoglobin A1c (<=6.0) % Total Bilirubin 1.5 H (0.2-1.3) mg/dL 12/16/22 12/16/22 Range/Units 06:06 06:06 Sodium 136 L (137-145) mmol/L Potassium (3.5-5.1) mmol/L Chloride (98-107) mmol/L BUN 33 H (9-20) mg/dL Creatinine (0.66-1.25) mg/dL Glucose (74-99) mg/dL POC Glucose (mg/dL) (70-110) mg/dL Hemoglobin A1c 7.5 H (<=6.0) % Total Bilirubin (0.2-1.3) mg/dL Thrombosis Risk Factor Assmnt - Choose All That Apply Any of the Below Risk Factors Present?: Yes Each Factor Represents 1 point: Obesity (BMI >25) Other Risk Factors: Yes Each Risk Factor Represents 3 Points: Age 75 years or older Other congenital or acquired thrombophilia - If yes, enter type in comment: No Thrombosis Risk Factor Assessment Total Risk Factor Score: 4 Thrombosis Risk Factor Assessment Level: Moderate Risk Assessment and Plan Assessment: Acute renal failure secondary to dehydration related to diarrhea, diuretics Hypotension secondary to the above. Orthostatic hypotension ruled out. Acute hypoxic respiratory failure secondary to the above, resolved Recent fall, one week ago, scabbed left elbow History of CHF History of CVA with residual left-sided weakness reported Diabetes mellitus, hemoglobin A1c 7.5 CAD, hx of CABG/AVR History of rheumatic fever Plan: Continue on current medication regime ,monitoring and symptomatic treatment. Gentle IV fluid hydration. Diuretics recently discontinued outpatient, cardiology consult in place, recommendations pending. Echo pending. Stool for C. difficile ordered. Probiotic initiated. PT/OT. The impression and plan of care has been dictated as directed. : I performed a history and examination of this patient, discussed the same with the dictator. I agree with the dictator's note ,documented as a scribe. Any additional findings or plans will be noted.
[2022-12-16 17:07] LABS: Glucose,Whole Blood 194 mg/dL (70-110)
[2022-12-16 20:25] LABS: Glucose,Whole Blood 175 mg/dL (70-110)
--- NOTE | 2022-12-16 23:01 | CONS ---
CONSULTATION HISTORY OF PRESENT ILLNESS: Mr. Hitchcock is an 87-year-old elderly gentleman who is known to have aortic valve replacement with a bioprosthetic valve for severe aortic regurgitation that was performed in 2018, at [facility]. At that time, he apparently did not have any significant obstructive CAD. However, he has nonischemic cardiomyopathy and the last ejection fraction was about 48% performed in December 2020. I saw him in the office recently on December 04. He was in heart failure. I started him on a small dose of Zaroxolyn 1.25 mg and Lasix 40 mg every morning. On this combination, he developed some diarrhea, dehydration and now comes into the hospital with what seems to be prerenal azotemia. He has been hydrated. He feels somewhat better. However, he still has overall generalized weakness. His main complaint when he came into the hospital was shortness of breath, generalized weakness, lack of energy and recent bout of diarrhea and he also had been aggressively diuresed in the last 1 week. He is resting comfortably without symptoms. Denies any chest pain or shortness of breath. PAST MEDICAL HISTORY: 1. Status post aortic valve replacement for severe aortic regurgitation in 2018 at [facility]. 2. No evidence of any significant obstructive CAD at that time. 3. Diabetes. 4. Hypertension. 5. Hyperlipidemia. 6. Nonischemic cardiomyopathy. MEDICATIONS AT HOME: Include, 1. Aspirin. 2. Plavix. 3. Insulin. 4. Imdur. 5. Rosuvastatin. 6. Carvedilol. 7. Lisinopril. 8. Amaryl. 9. Singulair. LABORATORY DATA: Suggests prerenal azotemia with a BUN of 56 and creatinine of 1.46. After hydration, it is down to 33 and 1.14. Troponin was normal. DIAGNOSTIC DATA: EKG revealed sinus mechanism with IVCD and left axis deviation. PHYSICAL EXAMINATION: VITAL SIGNS: On examination, blood pressure is 110/70, pulse rate is 64 per minute. HEENT: Unremarkable. Fundus was not examined by me. NECK: Supple. There is no significant JVD. There is no carotid bruit. HEART: Reveals S1, S2 heard normally. Short systolic murmur at the base. LUNGS: Bilateral decent air entry. ABDOMEN: Soft, nontender. MUSCULOSKELETAL: Lower extremities revealed diminished pulses, but there is no edema which was quite significant a week or 10 days ago. IMPRESSION: 1. Prerenal azotemia with volume depletion and dehydration secondary to diuresis. 2. Nonischemic cardiomyopathy. 3. Status post aortic valve replacement. 4. Hypertension. 5. Type 2 diabetes mellitus. RECOMMENDATIONS: I am recommending that we will cautiously hydrate him. Repeat BMP and once he is stronger and better, he will be discharged. We will re-evaluate his LV function by echo. For now, we will optimize medical therapy. I discussed my thoughts in detail with the patient, his was not available. Thank you very much for the consult. MMODL / IJN: [id number] /
[2022-12-17] MEDS: SODIUM CHLORIDE 0.9% 1,000 ML IV SCH (03:34)
[2022-12-17 07:47] LABS: Glucose,Whole Blood 126 mg/dL (70-110)
[2022-12-17] MEDS: SYMBICORT 160-4.5 MCG INHALER INHALATION SCH (07:53)
[2022-12-17] MEDS ORDERED: FUROSEMIDE 40 MG TAB PO SCH (09:00)
--- NOTE | 2022-12-17 09:16 | CDI ---
Documentation Clarification Form Date: 12/17/2022 09:01:38 AM From: Lety Avila RN CCDS Phone: [phone] Admit Date: 12/15/2022 01:56:00 PM Patient Name: Jermaine Hitchcock Visit Number: [id number] Discharge Date: ATTENTION: The Clinical Documentation Specialists (CDI) and [facility] Coding Staff appreciate your assistance in clarifying documentation. Please respond to the clarification below the line at the bottom and electronically sign. The CDI & [facility] Coding staff will review the response and follow-up if needed. Please note: Queries are made part of the Legal Health Record. If you have any questions, please contact the author of this message via ITS. Dr. Shaquille Bravo Your patient has the documented diagnosis of unspecified CHF 12/16, H&P. Additional information regarding the type, acuity of CHF is requested. History/Risk Factors: 87-year-old male presents with weakness and shortness of breath. Medical history: DM, HTN, CHF and CAD. Clinical Indicators: VS/Pulse OX: 12/15 B/P 73/52; HR 48; RR 20; 94% room air. Echocardiogram Results: 12/16 EF 35-40% Left ventricle is of a normal size with mild to moderate global decrease in contractility. Both atria are enlarged. 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 There is mild to moderate mitral regurgitation. Chest X Ray, 12/15: No acute pulmonary process. Treatment: Coreg 12.5mg PO BID; Lasix 20mg PO Daily In your professional opinion, can you please clarify the acuity and type of CHF if known? [ X ] Chronic Systolic Heart Failure (reduced EF) [ ] Chronic Systolic & Diastolic Heart Failure [ ] Other, please specify [ ] Unable to determine (Template Last Revised: June 2020) MTDD
[2022-12-17] MEDS: INSULIN ASPART (NovoLOG) 100 UNIT/ML VIAL SQ SCH ×2 (09:26→12:59)
[2022-12-17] MEDS: PANTOPRAZOLE 40 MG/10 ML VIAL IVP SCH (09:28)
[2022-12-17] MEDS: lisinopriL 5 MG TAB PO SCH (09:29)
[2022-12-17] MEDS: CLOPIDOGREL 75 MG TAB PO SCH (09:29)
[2022-12-17] MEDS: carvediloL 12.5 MG TAB PO SCH (09:29)
[2022-12-17] MEDS: ASPIRIN 81 MG PO SCH (09:29)
[2022-12-17] MEDS: LACTOBACILLUS ACIDOPHILUS/PECT 1 EACH CAPSULE PO SCH (09:29)
[2022-12-17] MEDS: ISOSORBIDE MONONITRATE ER 30 MG TAB.ER.24H PO SCH (09:29)
[2022-12-17] MEDS: ESCITALOPRAM 10 MG TAB PO SCH (09:29)
[2022-12-17] MEDS: MONTELUKAST 10 MG TAB PO SCH (09:29)
[2022-12-17 09:38] LABS: BUN/Creat Ratio 17.92 Ratio (12.00-20.00); Blood Urea Nitrogen 23.3 mg/dL (9.0-27.0); Carbon Dioxide 22.1 mmol/L (21.6-31.8); Chloride 101 mmol/L (96-109); Glucose 129 mg/dL (70-110); Potassium 4.7 mmol/L (3.5-5.5); Sodium 135 mmol/L (135-145)
--- NOTE | 2022-12-17 10:57 | P.DS ---
Providers Date of admission: 12/15/22 13:56 Expected date of discharge: 12/17/22 Attending physician: Shaquille Bravo MD Consults: 12/15/22 13:56 Consult Physician Routine Consulting Provider: Eneida Barillas Consult Reason/Comments: dizziness Do you want consulting provider notified?: Yes Primary care physician: Shaquille Bravo MD Hospital Course: Final Diagnoses: Acute renal failure secondary to dehydration related to diarrhea, diuretics. Hypotension secondary to the above. Orthostatic hypotension ruled out. Acute hypoxic respiratory failure secondary to the above, resolved Recent fall, one week ago, scabbed left elbow Chronic systolic CHF, ischemic cardiomyopathy, EF decreased to 35-40%, cardiology reports prior EF of 48% in December 2020. History of CVA with residual left-sided weakness reported Diabetes mellitus, hemoglobin A1c 7.5 Hypertension Hyperlipidemia CAD, hx of CABG/AVR History of rheumatic fever Hospital course:This is an 87-year-old gentleman with past medical history significant for CABG/AVR, diabetes mellitus, hypertension, rheumatic fever, presented to the ER with complaints of progressive weakness, shortness of breath, diarrhea, recent fall last week and multiple other medical issues. reported he had been aggressively diuresed recently. 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 Reports 3 episodes of diarrhea this morning. Denies abdominal pain. Telemetry reporting couplets and bigeminy this morning. Magnesium 2.2 yesterday. Potassium 4.5. Denies chest pain, palpitations. Troponins negative 1, EKG reporting sinus rhythm with first-degree AV block, right bundle branch block, left anterior fascicular block Reports shortness of breath, mild sinus congestion. Hypoten sive on admission, with systolic blood pressures in the 70s, received IV fluid hydration, improving. Negative for orthostatic hypotension. Supplemental oxygen weaned off. Afebrile, normal WBC. Hemoglobin 16.4, platelets 151, INR 1. Sodium 136, potassium 4.5, bicarb 22, BUN 56/1.46 improved with IV fluid hydration, currently BUN 33/creatinine 1.14. Blood sugars currently controlled, ranging from 95-225. Hemoglobin A1c 7.5. Head/cervical spine CT reported old right basal ganglion infarct with extension into the pérez radiata. Ex vacuo affect is evident. No acute intracranial process, no acute osseous abnormality C-spine, foraminal narrowing upper cervical spine. Chest CT reported no acute pulmonary process, no displaced rib fractures evident. Maintained on gentle IV fluid hydration with diuretics recently discontinued outpatient as per cardiology. Diarrhea subsided. Echo reported mildly decreased LV function, EF 35-40%, left ventricle normal size with mild to moderate global decrease in contractility, both atria are enlarged, aortic bioprosthesis stable, mild to moderate mitral regurgitation, no pericardial effusion, no significant pulmonary hypertension. Significant clinical improvement. Evaluated by cardiology, oral Lasix resumed today. Patient will be discharged home later today, in a stable condition with guarded prognosis, pending BMP, final DC recommendations and clearance per cardiology. The impression and plan of care has been dictated as directed. : I performed a history and examination of this patient, discussed the same with the dictator. I agree with the dictator's note ,documented as a scribe. Any additional findings or plans will be noted. Patient Condition at Discharge: Stable Plan - Discharge Summary Discharge Rx Participant: No New Discharge Prescriptions: New Furosemide [Lasix] 40 mg PO DAILY 30 Days #30 tab Continue Isosorbide Mononitrate ER [Imdur] 30 mg PO DAILY Escitalopram [Lexapro] 10 mg PO HS Clopidogrel [Plavix] 75 mg PO DAILY Glimepiride [Amaryl] 2 mg PO AC-BID Insulin Glargine,Hum.rec.anlog [Lantus Solostar Pen] 28 - 38 units SQ HS Aspirin EC [Ecotrin Low Dose] 81 mg PO DAILY lisinopriL [Zestril] 5 mg PO DAILY Rosuvastatin [Crestor] 10 mg PO HS Ergocalciferol (Vitamin D2) [Drisdol (50,000 Iu)] 1,250 mcg PO MO carvediloL [Coreg] 12.5 mg PO BID Montelukast [Singulair] 10 mg PO DAILY Cetirizine HCl [Zyrtec] 10 mg PO DAILY Albuterol Inhaler [Ventolin Hfa Inhaler] 2 puff INHALATION RT-BID PRN PRN Reason: Shortness Of Breath Budesonide/Formoterol Fumarate [Symbicort 160-4.5 Mcg Inhaler] 1 puff INHALATION RT-BID Discharge Medication List Aspirin EC [Ecotrin Low Dose] 81 mg PO DAILY 05/14/22 [History] Clopidogrel [Plavix] 75 mg PO DAILY 05/14/22 [History] Ergocalciferol (Vitamin D2) [Drisdol (50,000 Iu)] 1,250 mcg PO MO 05/14/22 [History] Escitalopram [Lexapro] 10 mg PO HS 05/14/22 [History] Insulin Glargine,Hum.rec.anlog [Lantus Solostar Pen] 28 - 38 units SQ HS 05/14/22 [History] Isosorbide Mononitrate ER [Imdur] 30 mg PO DAILY 05/14/22 [History] Rosuvastatin [Crestor] 10 mg PO HS 05/14/22 [History] carvediloL [Coreg] 12.5 mg PO BID 05/14/22 [History] lisinopriL [Zestril] 5 mg PO DAILY 05/14/22 [History] Albuterol Inhaler [Ventolin Hfa Inhaler] 2 puff INHALATION RT-BID PRN 12/15/22 [History] Budesonide/Formoterol Fumarate [Symbicort 160-4.5 Mcg Inhaler] 1 puff INHALATION RT-BID 12/15/22 [History] Cetirizine HCl [Zyrtec] 10 mg PO DAILY 12/15/22 [History] Glimepiride [Amaryl] 2 mg PO AC-BID 12/15/22 [History] Montelukast [Singulair] 10 mg PO DAILY 12/15/22 [History] Furosemide [Lasix] 40 mg PO DAILY 30 Days #30 tab 12/17/22 [Rx] Follow up Appointment(s)/Referral(s): Eneida Barillas MD [STAFF PHYSICIAN] - 12/29/22 3:45 pm Shaquille Bravo MD [Primary Care Provider] - 12/19/22 1:15 pm (This appointment is with Alesha DIXON in the [place] office.) Ambulatory/Diagnostic Orders: Basic Metabolic Panel [LAB.AMB] Time Frame: 3 Days, Location: None Selected
--- NOTE | 2022-12-17 11:15 | P.PN ---
Subjective Progress Note Date: 12/17/22 History of present illness: This is an 87-year-old male with past history of aortic valve replacement with bioprosthetic valve for severe aortic regurgitation performed 2018 at [facility]. He does not have significant obstructive CAD however he has nonischemic cardiomyopathy with last ejection fraction 40% performed in December 2020. Patient was seen in the office recently on December 04 with heart failure the patient was started on a small dose of Zaroxolyn 1.25 along with Lasix 40 mg every morning. Patient also developed diarrhea and dehydration and came in the hospital seems to be prerenal azotemia. Patient has been hydrated. He is feeling much better but has generalized weakness and shortness of breath lack of energy and recent bouts of diarrhea and had also recently been diuresed aggre ssively for the past week. Patient is feeling much better today. He has been on fluid resuscitation. Echocardiogram reveals left ventricular normal size with mild to moderate global decrease in contractility both atria are enlarged. Aortic valve bioprosthesis is stable without significant gradient regurgitation. Mild to moderate mitral regurgitation. No pericardial effusion or significant pulmonary hypertension. Repeat blood work reveals sodium 135, potassium 4.7, BUN 23 creatinine 1.3. Physical examination: Gen: This is an 87-year-old male. Resting bed appears to be comfortable VS: reviewed HEENT: Head is atraumatic, normocephalic. Pupils equal, round. Sclerae is anicteric. NECK: Supple. No JVD. . LUNGS: Clear to auscultation. No wheezes or rhonchi. No intercostal retractions. HEART: Regular rate and rhythm. Short systolic murmur at the base. ABDOMEN: Soft No tenderness. EXTREMITIES: No pedal edema. No calf tenderness. NEUROLOGICAL: Patient is awake, alert and oriented x3. Assessment: Prerenal azotemia and volume depletion dehydration secondary to diuresis Nonischemic myopathy Status post aortic valve replacement Hypertension Diabetes mellitus type 2 Plan: Resume patient back on Lasix 40 mg daily, continue home medications, hold Zaroxolyn. Patient is cleared for discharge with follow-up in the office in one week. Nurse practitioner note has been reviewed, I agree with documented findings and plan of care. Patient was seen and examined. Objective - Vital Signs Vital signs: Vital Signs Temp 97.3 F L 12/17/22 07:45 Pulse 61 12/17/22 07:45 Resp 15 12/17/22 07:45 BP 129/74 12/17/22 07:45 Pulse Ox 96 12/17/22 07:45 FiO2 92 12/16/22 12:29 Intake & Output 12/16/22 12/17/22 12/17/22 18:59 06:59 18:59 Intake Total 500 Balance 500 Intake: Intake, IV Titration 500 Amount Sodium Chloride 0.9% 1, 500 000 ml @ 20 mls/hr IV . [facility] Rx#:[id number] Other: Voiding Method Toilet # Voids 1 1 # Bowel Movements 1 0 - Labs CBC & Chem 7: 12/15/22 11:02 12/17/22 06:40 Labs: Abnormal Lab Results - Last 24 Hours (Table) 12/16/22 12/16/22 12/16/22 Range/Units 06:06 06:06 12:04 Sodium 136 L (137-145) mmol/L BUN 33 H (9-20) mg/dL POC Glucose (mg/dL) 152 H (70-110) mg/dL Hemoglobin A1c 7.5 H (<=6.0) % 12/16/22 12/16/22 12/17/22 Range/Units 17:06 20:24 07:46 Sodium (137-145) mmol/L BUN (9-20) mg/dL POC Glucose (mg/dL) 194 H 175 H 126 H (70-110) mg/dL Hemoglobin A1c (<=6.0) %
[2022-12-17 12:19] LABS: Glucose,Whole Blood 346 mg/dL (70-110)
[2022-12-17 13:14] VITALS: BMI 27.1
[2022-12-17 15:01] VITALS: BP 121/73; PULSE 67; RESP 18; TEMP 97.7
== END 2022-12-17 15:20 | disposition home or self-care (01) | DRG 682 ==
LOC: EC 10:27 → 5NMEDONC 13:56
PROVIDERS: ADMIT Family Medicine; ATTEND Family Medicine
DX: N17.9 Acute kidney failure, unspecified (principal); J96.01 Acute respiratory failure with hypoxia; I42.8 Other cardiomyopathies; I45.2 Bifascicular block; I50.22 Chronic systolic (congestive) heart failure; I69.354 Hemiplegia and hemiparesis following cerebral infarction affecting left non-dominant side; I50.32 Chronic diastolic (congestive) heart failure; I95.9 Hypotension, unspecified; T50.2X5A Adverse effect of carbonic-anhydrase inhibitors, benzothiadiazides and other diuretics, initial encounter; E78.5 Hyperlipidemia, unspecified; E86.0 Dehydration; E11.9 Type 2 diabetes mellitus without complications; I25.10 Atherosclerotic heart disease of native coronary artery without angina pectoris; R19.7 Diarrhea, unspecified; E66.9 Obesity, unspecified; I11.0 Hypertensive heart disease with heart failure; R23.4 Changes in skin texture; F32.A Depression, unspecified; I08.0 Rheumatic disorders of both mitral and aortic valves; I45.10 Unspecified right bundle-branch block; I44.0 Atrioventricular block, first degree; Z79.02 Long term (current) use of antithrombotics/antiplatelets; Z79.51 Long term (current) use of inhaled steroids; Z79.82 Long term (current) use of aspirin; Z79.84 Long term (current) use of oral hypoglycemic drugs; Z79.899 Other long term (current) drug therapy; Z95.1 Presence of aortocoronary bypass graft; Z95.3 Presence of xenogenic heart valve; Z68.27 Body mass index [BMI] 27.0-27.9, adult; Z91.81 History of falling
CPT/HCPCS: 36415; 70450; 71250; 72125; 80048; 80053; 83036; 83735; 84484; 85025; 85610; 85730; 93005; 93306; 94640; 99285

== ENCOUNTER 2024-01-15 09:01 | Inpatient (IN) | payer MEDICARE, BC ==
--- NOTE | 2024-01-15 09:38 | ED ---
General Adult HPI - General Chief complaint: Fall Stated complaint: Fall Time Seen by Provider: 01/15/24 09:04 Source: patient, EMS Mode of arrival: EMS - History of Present Illness Initial comments: Dictation was produced using [employer] dictation software. please excuse any grammatical, word or spelling errors. Chief Complaint: 88-year-old male presents with back pain after fall History of Present Illness: Patient is an 88-year-old male presents emergency department with back pain after fall. Patient states that 2 days ago he sneezed really hard while putting something in the microwave caused him to fall. He fell backwards hurt his lower back. States he did bump his head. Denies any dizziness. Patient takes no anticoagulation medications. Patient woke up this morning with back pain. He called EMS and was brought to the ER. Denies any issues with bowel or bladder control, no saddle anesthesia. Pain is nonradiating. The ROS documented in this emergency department record has been reviewed and confirmed by me. Those systems with pertinent positive or negative responses have been documented in the HPI. All other systems are other negative and/or noncontributory. - Related Data Home Medications Medication Instructions Recorded Confirmed Aspirin EC [Ecotrin Low Dose] 81 mg PO DAILY 05/14/22 12/15/22 Clopidogrel [Plavix] 75 mg PO DAILY 05/14/22 12/15/22 Ergocalciferol (Vitamin D2) 1,250 mcg PO MO 05/14/22 12/15/22 [Drisdol (50,000 Iu)] Escitalopram [Lexapro] 10 mg PO HS 05/14/22 12/15/22 Insulin Glargine,Hum.rec.anlog 28 - 38 units SQ HS 05/14/22 12/15/22 [Lantus Solostar Pen] Isosorbide Mononitrate ER [Imdur] 30 mg PO DAILY 05/14/22 12/15/22 Rosuvastatin [Crestor] 10 mg PO HS 05/14/22 12/15/22 carvediloL [Coreg] 12.5 mg PO BID 05/14/22 12/15/22 lisinopriL [Zestril] 5 mg PO DAILY 05/14/22 12/15/22 Albuterol Inhaler [Ventolin Hfa 2 puff INHALATION RT-BID PRN 12/15/22 12/15/22 Inhaler] Budesonide/Formoterol Fumarate 1 puff INHALATION RT-BID 12/15/22 12/15/22 [Symbicort 160-4.5 Mcg Inhaler] Cetirizine HCl [Zyrtec] 10 mg PO DAILY 12/15/22 12/15/22 Glimepiride [Amaryl] 2 mg PO AC-BID 12/15/22 12/15/22 Montelukast [Singulair] 10 mg PO DAILY 12/15/22 12/15/22 Previous Rx's Medication Instructions Recorded Furosemide [Lasix] 40 mg PO DAILY 30 Days #30 tab 12/17/22 Allergies Allergy/AdvReac Type Severity Reaction Status Date / Time No Known Allergies Allergy Verified 01/15/24 09:09 Review of Systems ROS Statement: Those systems with pertinent positive or pertinent negative responses have been documented in the HPI. ROS Other: All systems not noted in ROS Statement are negative. Past Medical History Past Medical History: Chest Pain / Angina, Heart Failure, CVA/TIA, Diabetes Mellitus, Hypertension Additional Past Medical History / Comment(s): rheumatic fever as child. 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 Past Anesthesia/Blood Transfusion Reactions: No Reported Reaction Past Psychological History: Depression Smoking Status: Never smoker Past Alcohol Use History: None Reported Past Drug Use History: None Reported - Past Family History Mother Family Medical History: Rheumatoid Arthritis (RA) Father Additional Family Medical History / Comment(s): at 75 years old with alzheimer's General Exam - General Exam Comments Initial Comments: PHYSICAL EXAM: General Impression: Alert and oriented x3, not in acute distress HEENT: Normocephalic atraumatic, extra-ocular movements intact, pupils equal and reactive to light bilaterally, mucous membranes moist. Cardiovascular: Heart regular rate and rhythm Chest: Able to complete full sentences, no retractions, no tachypnea Abdomen: abdomen soft, non-tender, non-distended, no organomegaly Musculoskeletal: Pulses present and equal in all extremities, no peripheral edema Motor: no focal deficits noted Neurological: CN II-XII grossly intact, no focal motor or sensory deficits noted, no saddle anesthesia Skin: Intact with no visualized rashes Psych: Normal affect and mood Course Vital Signs 01/15/24 09:03 Temperature 98.6 F Pulse Rate 79 Respiratory 20 Rate Blood Pressure 149/90 O2 Sat by Pulse 93 L Oximetry Medical Decision Making - Medical Decision Making Was pt. sent in by a medical professional or institution (, PA, [employer], urgent care, hospital, or correction...) When possible be specific @ -No Did you speak to anyone other than the patient for history (EMS, parent, family, police, friend...)? What history was obtained from this source @ -No Did you review nursing and triage notes (agree or disagree)? Why? @ -I reviewed and agree with nursing and triage notes Were old charts reviewed (outside hosp., previous admission, EMS record, old EKG, old radiological studies, urgent care reports/EKG's, correction records)? Report findings @ -No old charts were reviewed Differential Diagnosis (chest pain, altered mental status, abdominal pain women, abdominal pain men, vaginal bleeding, musculoskeletal, weakness, fever, dyspnea, syncope, headache, dizziness, GI bleed, back pain, seizure, CVA, palpatations, mental health)? @ -Back fracture, back strain, back contusion, skull fracture EKG interpreted by me (3pts min.). @ -My EKG interpretation: Ventricular rate 72, sinus rhythm,. Will 215, QRS 130, QTc 447. No ME prolongation, no QTC prolongation, no ST or T-wave changes noted. EKG compared to October 15, 2022 showing no changes. Overall, this EKG is unremarkable X-rays interpreted by me (1pt min.). @ -Not done CT interpreted by me (1pt min.). @ -CT scan of the head and C-spine shows no acute processes. CT scan of the thoracic and lumbar spine shows moderate compression fractures of T11-L1. U/S interpreted by me (1pt. min.). @ -None done What testing was considered but not performed or refused? (CT, X-rays, U/S, labs)? Why? @ -None What meds were considered but not given or refused? Why? @ -None Was smoking cessation discussed for >3mins.? @ -No Were there social determinants of health that impacted care today? How? (Homelessness, low income, unemployed, alcoholism, drug addiction, transportation, low edu. Level, literacy, decrease access to med. care, snf, rehab)? @ -Advanced age Was there de-escalation of care discussed even if they declined (Discuss DNR or withdrawal of care, Hospice)? DNR status @ -No What co-morbidities impacted this encounter? (DM, HTN, Smoking, COPD, CAD, Cancer, CVA, ARF, Chemo, Hep., AIDS, mental health diagnosis, sleep apnea, morbid obesity)? @ -None Was patient admitted / discharged? Hospital course, mention meds given and route, prescriptions, significant lab abnormalities, going to OR and other pertinent info. @ -88-year-old male presents emergency department fall and back pain. Patient suffered mechanical fall. Patient has thoracolumbar vertebral fractures without any retropulsion. Patient has no red flag symptoms of back pain. reports that patient is too debilitated for her to comfortably take her home and care for him. She request that patient be admitted. Patient is agreeable. Will be admitted for grave disability. Did you discuss the management of the patient with other professionals (professionals i.e. , PA, [employer], lab, RT, psych nurse, child protective services social worker, truck driver instructor, teacher, health promotion officer, correctional casework specialist)? Give summary @ -discussed with hospitalist for admision Was critical care preformed (if so, how long)? @ -No Undiagnosed new problem with uncertain prognosis? @ -No Drug Therapy requiring intensive monitoring for toxicity (Heparin, Nitro, Insulin, Cardizem)? @ -No Were any procedures done? @ -No Diagnosis/symptom? Acute, or Chronic, or Acute on Chronic? Uncomplicated (without systemic symptoms) or Complicated (systemic symptoms)? @ -Thoracolumbar vertebral fractures Side effects of treatment? @ -No Exacerbation, Progression, or Severe Exacerbation? @ -No Poses a threat to life or bodily function? How? (Chest pain, [place], [place], pneumonia, PE, COPD, DKA, ARF, appy, cholecystitis, CVA, Diverticulitis, Homicidal, Suicidal, threat to staff... and all critical care pts) @ -yes Disposition Clinical Impression: Gravely disabled, Spinal fracture Disposition: ADMITTED IP TO THIS HOSP Condition: Fair Referrals: Shaquille Bravo MD [Primary Care Provider] - 1-2 days Decision Time: 11:51
--- NOTE | 2024-01-15 10:25 | CT ---
EXAMINATION TYPE: CT brain dottie wo con DATE OF EXAM: 01/15/2024 COMPARISON: 12/15/2022 HISTORY: FALL CT DLP: 1453.6 mGycm Automated exposure control for dose reduction was used. TECHNIQUE: CT scan of the head and cervical spine are performed without contrast. Findings: Head CT: The ventricles, basal cisterns and sulci over convexities are markedly enlarged consistent with marke d generalized atrophy. There is a large remote infarct involving the right temporal lobe and perivent ricular white matter. There is ex vacuo dilatation of the right lateral ventricle secondary to the infarct. There is moderate decreased density in the periventricular white matter consistent with chronic ische eliana white matter demyelination. There is no acute intra or extra-axial hemorrhage. Posterior fossa including the brainstem, fourth ventricle and cerebellar pontine angles are grossly n ormal. Intraorbital contents are normal and symmetric. There is complete opacification of the left mastoid a ir cell. CT cervical spine: Craniovertebral junction relationships and prevertebral soft tissues are normal. The cervical vertebral segments are normal in height and alignment and there is no fracture subluxati on. The disc spaces are well-maintained in height and there is no significant degenerative disc disease. The bony cervical canal is widely patent and there is no bony encroachment of the neural foramina. The paraspinal soft tissues unremarkable. IMPRESSION: 1. Head CT: No acute bleed or mass effect. 2. CT cervical spine: No acute trauma.
--- NOTE | 2024-01-15 10:28 | CT ---
EXAMINATION TYPE: CT thor lumbar spine wo con DATE OF EXAM: 01/15/2024 COMPARISON: None HISTORY: FALL CT DLP: 1568 mGycm Automated exposure control for dose reduction was used. Findings: There are moderate compression fractures of T11, T12 and L1 of indeterminate age given the lack of pr ior study for comparison. There is mild degenerative disease but disc spaces are fairly well maintain ed in height throughout the dorsal spine. There is no bony encroachment of the thoracic or lumbar spinal canal. The paraspinal soft tissues are unremarkable. IMPRESSION: Moderate compression fractures of T11, T12 and L1 of indeterminate age. There is no retropulsion or b aishwarya compromise of the spinal canal.
[2024-01-15] MEDS ORDERED: NALOXONE 0.4 MG/ML 1 ML VIAL IV PRN (11:54)
--- NOTE | 2024-01-15 12:53 | P.HPOR ---
History of Present Illness H&P Date: 01/15/24 Chief Complaint: back pain Patient is an 88-year-old male who presented to the emergency department today due to back pain status post fall at home. Patient says 2 days ago while he was at home he was placing 3 muffins in the microwave when he sneezed and fell backwards landing onto his lower back. Patient states he did hit his head patient denies any lightheadedness/dizziness. Patient does not take any blood thinners. Patient states he woke up this morning with back pain and decided to come in through the ER patient denies any saddle anesthesia/loss of bowel or bladder control. Patient states he does not have any radiation of pain. He states the pain is localized to the low back at midline. Patient denies any previous orthopedic surgical history. Past Medical History Past Medical History: Chest Pain / Angina, Heart Failure, CVA/TIA, Diabetes Mellitus, Hypertension Additional Past Medical History / Comment(s): rheumatic fever as child. 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 Past Anesthesia/Blood Transfusion Reactions: No Reported Reaction Past Psychological History: Depression Smoking Status: Never smoker Past Alcohol Use History: None Reported Past Drug Use History: None Reported - Past Family History Mother Family Medical History: Rheumatoid Arthritis (RA) Father Additional Family Medical History / Comment(s): at 75 years old with alzheimer's Medications and Allergies Home Medications Medication Instructions Recorded Confirmed Type Aspirin EC [Ecotrin Low Dose] 81 mg PO DAILY 05/14/22 12/15/22 History Clopidogrel [Plavix] 75 mg PO DAILY 05/14/22 12/15/22 History Ergocalciferol (Vitamin D2) 1,250 mcg PO MO 05/14/22 12/15/22 History [Drisdol (50,000 Iu)] Escitalopram [Lexapro] 10 mg PO HS 05/14/22 12/15/22 History Insulin Glargine,Hum.rec.anlog 28 - 38 units SQ HS 05/14/22 12/15/22 History [Lantus Solostar Pen] Isosorbide Mononitrate ER [Imdur] 30 mg PO DAILY 05/14/22 12/15/22 History Rosuvastatin [Crestor] 10 mg PO HS 05/14/22 12/15/22 History carvediloL [Coreg] 12.5 mg PO BID 05/14/22 12/15/22 History lisinopriL [Zestril] 5 mg PO DAILY 05/14/22 12/15/22 History Albuterol Inhaler [Ventolin Hfa 2 puff INHALATION RT-BID PRN 12/15/22 12/15/22 History Inhaler] Budesonide/Formoterol Fumarate 1 puff INHALATION RT-BID 12/15/22 12/15/22 History [Symbicort 160-4.5 Mcg Inhaler] Cetirizine HCl [Zyrtec] 10 mg PO DAILY 12/15/22 12/15/22 History Glimepiride [Amaryl] 2 mg PO AC-BID 12/15/22 12/15/22 History Montelukast [Singulair] 10 mg PO DAILY 12/15/22 12/15/22 History Furosemide [Lasix] 40 mg PO DAILY 30 Days #30 tab 12/17/22 Rx Allergies Allergy/AdvReac Type Severity Reaction Status Date / Time No Known Allergies Allergy Verified 01/15/24 09:09 Physical Examination Inspection: Evident scoliosis throughout the spine. Negative for any ecchymosis, erythema, open wounds or significant swelling. Sensation: Equal, symmetric, bilateral intact throughout the upper and lower extremities. Palpation: Moderate tenderness to palpation over the lower lumbar spine at midline and in the paravertebral region. Nontender to palpation throughout rest of exam. Range of motion: Patient does have good range of motion throughout bilateral upper extremities on exam. There is limited range of motion of the bilateral hips in flexion's extension secondary to for pain and stiffness to the low back. Patient is able to flex bilateral knees to about 70 degrees while lying in the semirecumbent position in bed. Patient lacks about 5 degrees full extension bilaterally in the knees. Motor: 4/5 in all major motor groups in bilateral upper extremities. 4-/5 in resisted hip flexion/extension bilaterally. 4/5 in resisted knee flexion's extension and ankle dorsi/plantarflexion. Special test: Negative clonus bilaterally. Negative Priti bilaterally. Negative Homans bilaterally. Neurovascular: Radial pulse intact, 2+ bilaterally. Results - Diagnostic results CT Scan - lumbar: report reviewed, image reviewed (CT scan of the thoracolumbar spine does reveal compression fractures at T11/ T12, L1. Negative for any retropulsion into the spinal canal. Negative for any spondylolisthesis or significant central canal stenosis.) Assessment and Plan Assessment: 1. T11, T12, L1 vertebral compression fractures; mechanical low back pain Plan: 1. T11, T12, L1 vertebral compression fractures; mechanical low back pain - CT scan of the thoracolumbar spine does reveal compression fractures at T11/ T12, L1. Negative for any retropulsion into the spinal canal. Negative for any spondylolisthesis or significant central canal stenosis. I did review the findings of the imaging and exam with my attending, Dr. Smith. At this time we are not recommending any emergent/urgent orthopedic surgical intervention. We are recommending conservative measures with the use of pain medication and PT/OT. We will write a prescription for a TLSO brace to help with stabilization for vertebral compression fractures. Patient may weight-bear as tolerated with walker and assistance as needed. We will continue to follow patient during stay in hospital. 2. Appreciate medical management 3. Pain management - tylenol; flexeril 4. DVT prophylaxis -mechanical 5. GI prophylaxis - senna 6. PT/OT - weight-bearing as tolerated with walker and assistance 7. Encourage incentive spirometer use Time with Patient: Less than 30
[2024-01-15] MEDS: CYCLOBENZAPRINE 5 MG TAB PO STA (13:32)
[2024-01-15] MEDS: ACETAMINOPHEN TAB 325 MG TAB PO PRN (16:11)
[2024-01-15 21:07] LABS: Glucose,Whole Blood 129 mg/dL (70-110)
[2024-01-16 05:48] LABS: Glucose,Whole Blood 140 mg/dL (70-110)
[2024-01-16] MEDS ORDERED: DEXTROSE 50% SYRINGE 50 ML IVP PRN ×2 (06:59)
--- NOTE | 2024-01-16 07:08 | P.CONS ---
History of Present Illness - Reason for Consult Consult date: 01/15/24 Medical management, status post fall and weakness - History of Present Illness This is a pleasant 88-year-old male who presented to the emergency department via EMS with falls and generalized weakness with severe back pain. Patient apparently few days ago fell backwards onto his back and did strike his head. Patient reports he denies any loss of consciousness although became progressively more weak over the last day or 2 with severe back pain. Patient was admitted to trauma services to orthopedics patient had multiple imaging done in the ER which showed moderate compression fractures of T11, T12, L1 of indeterminate age with no retropulsion or bony compromise of the spinal canal. Patient also underwent CT of the brain and neck with no acute bleed or mass effect noted and no acute trauma noted there were no labs drawn in the ER and patient was admitted as family cannot care for him any longer and may need possible placement. Medical placed on consult for management. Medications reviewed and resumed as patient follows with Dr. Shaquille Bravo in the outpatient setting with a past medical history of diabetes, chest pain/angina, heart failure, previous CVA/TIA, hypertension along with depression. PT/OT therapy consulted and social work consult placed. REVIEW OF SYSTEMS: CONSTITUTIONAL: No fever, no malaise, no fatigue. HEENT: No recent visual problems or hearing problems. Denied any sore throat. CARDIOVASCULAR: No chest pain, orthopnea, PND, no palpitations, no syncope. PULMONARY: No shortness of breath, no cough, no hemoptysis. GASTROINTESTINAL: No diarrhea, no nausea, no vomiting, no abdominal pain. NEUROLOGICAL: No headaches, no weakness, no numbness. HEMATOLOGICAL: Denies any bleeding or petechiae. GENITOURINARY: Denies any burning micturition, frequency, or urgency. MUSCULOSKELETAL/RHEUMATOLOGICAL: Denies any joint pain, swelling, or any muscle pain when he is not moving. When attempting to get up or ambulate he has severe back pain. ENDOCRINE: Denies any polyuria or polydipsia. The rest of the 14-point review of systems is negative. PHYSICAL EXAMINATION: GENERAL: The patient is alert and oriented x2, not in any acute distress. Laying flat on the stretcher well developed, elderly appearing HEENT: Pupils are round and equally reacting to light. EOMI. No scleral icterus. No conjunctival pallor. Normocephalic, atraumatic. No pharyngeal erythema. No thyromegaly. CARDIOVASCULAR: S1 and S2 present. No murmurs, rubs, or gallops. PULMONARY: Diminished breath sounds bilaterally otherwise chest is clear to auscultation, no wheezing or crackles. ABDOMEN: Soft, nontender, nondistended, normoactive bowel sounds. No palpable organomegaly. MUSCULOSKELETAL: No joint swelling or deformity. EXTREMITIES: No cyanosis, clubbing, or pedal edema. NEUROLOGICAL: Gross neurological examination did not reveal any focal deficits. Diffusely weak SKIN: No rashes. Assessment: Falls with recurrent falls most recently and gait dysfunction History of CHF, not in exacerbation History of CVA/TIA in 2006 with left-sided weakness residual History of hypertension History of diabetes mellitus, type II History of depression Generalized weakness GI prophylaxis DVT prophylaxis Full code Plan: Patient was admitted to trauma services as patient fell which was mechanical with no LOC. Patient noted to have fractures of the T-spine and L1 that appears chronic Patient also underwent CT of the brain and neck which was negative for acute process Patient will need PT/OT therapy evaluation and social work consult if family feels they cannot care for him in the home and patient has been having increased weakness and recurrent falls Home medications reviewed and resumed as appropriate patient noted to be a diabetic and will add Accu-Cheks with before meals and at bedtime along with sliding scale and adjust accordingly Orthopedics as attending and will likely need ECF on discharge. Continue Tylenol as needed for pain or fever and nonnarcotics if possible given patient's age The impression and plan of care has been dictated by Alesha Ferreira, Nurse Practitioner as directed. Dr. Diamante MD I have performed a history and examination and MDM of this patient, discussed the same with the dictator, and agree with the dictator's assessment and plan as written ,documented as a scribe. Based on total visit time, I have performed more than 50% of the visit. Past Medical History Past Medical History: Chest Pain / Angina, Heart Failure, CVA/TIA, Diabetes Mellitus, Hypertension Additional Past Medical History / Comment(s): rheumatic fever as child. 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 History of Any Multi-Drug Resistant Organisms: None Reported Past Surgical History: Appendectomy Additional Past Surgical History / Comment(s): 2018 open heart surgery for aorti c valve Past Anesthesia/Blood Transfusion Reactions: No Reported Reaction Past Psychological History: Depression Smoking Status: Never smoker Past Alcohol Use History: None Reported Past Drug Use History: None Reported - Past Family History Mother Family Medical History: Rheumatoid Arthritis (RA) Father Additional Family Medical History / Comment(s): at 75 years old with alzheimer's Medications and Allergies Home Medications Medication Instructions Recorded Confirmed Type Aspirin EC [Ecotrin Low Dose] 81 mg PO DAILY 05/14/22 01/15/24 History Clopidogrel [Plavix] 75 mg PO DAILY 05/14/22 01/15/24 History Insulin Glargine,Hum.rec.anlog 38 units SQ HS 05/14/22 01/15/24 History [Lantus Solostar Pen] Isosorbide Mononitrate ER [Imdur] 30 mg PO DAILY 05/14/22 01/15/24 History Cetirizine HCl [Zyrtec] 10 mg PO DAILY 12/15/22 01/15/24 History Glimepiride [Amaryl] 2 mg PO AC-BID 12/15/22 01/15/24 History Donepezil [Aricept] 10 mg PO HS 01/15/24 01/15/24 History Empagliflozin [Jardiance] 10 mg PO DAILY 01/15/24 01/15/24 History Furosemide [Lasix] 20 mg PO DAILY 01/15/24 01/15/24 History Glimepiride [Amaryl] 2 mg PO AC-BID 01/15/24 01/15/24 History QUEtiapine [SEROquel] 50 mg PO HS 01/15/24 01/15/24 History Allergies Allergy/AdvReac Type Severity Reaction Status Date / Time No Known Allergies Allergy Verified 01/15/24 14:51 Physical Exam Vitals: Vital Signs Temp Pulse Resp BP Pulse Ox 01/15/24 11:51 74 16 142/78 94 L 01/15/24 09:03 98.6 F 79 20 149/90 93 L Intake and Output 01/14/24 01/15/24 01/15/24 22:59 06:59 14:59 Other: Weight 84.368 kg
[2024-01-16] MEDS: INSULIN ASPART (NovoLOG) 100 UNIT/ML VIAL SQ SCH (07:30)
[2024-01-16 08:11] LABS: Basophils # (A) 0.1 k/uL (0-0.2); Basophils % (A) 1 %; Eosinophils # (A) 0.3 k/uL (0-0.7); Eosinophils % (A) 5 %; HCT 51.7 % (39.0-53.0); Lymphocytes # (A) 1.1 k/uL (1.0-4.8); Lymphocytes % (A) 16 %; MCH 31.6 pg (25.0-35.0); MCHC 32.9 g/dL (31.0-37.0); MCV 96.2 fL (80.0-100.0); Mean Platelet Volume 7.4; Monocytes # (A) 0.5 k/uL (0-1.0); Monocytes % (A) 7 %; Neutrophils % (A) 69 %; Platelet Count 203 k/uL (150-450); RBC 5.37 m/uL (4.30-5.90); RDW 13.7 % (11.5-15.5); WBC 7.2 k/uL (3.8-10.6)
[2024-01-16 08:51] LABS: African American GFR (CKD) 79 (>60 ml/min/1.73 sqM); Anion Gap 12 mmol/L; Blood Urea Nitrogen 23 mg/dL (9-20); Calcium 9.6 mg/dL (8.4-10.2); Carbon Dioxide 18 mmol/L (22-30); Chloride 105 mmol/L (98-107); Glucose 147 mg/dL (74-99); Magnesium 2.1 mg/dL (1.6-2.3); Non-African American GFR(CKD) 68 (>60 ml/min/1.73 sqM); Potassium 4.8 mmol/L (3.5-5.1); Sodium 135 mmol/L (137-145)
[2024-01-16] MEDS: DAPAGLIFLOZIN PROPANEDIOL 5 MG TABLET PO SCH (08:51)
[2024-01-16] MEDS: LORATADINE 10 MG TAB PO SCH (08:51)
[2024-01-16] MEDS: ISOSORBIDE MONONITRATE ER 30 MG TAB.ER.24H PO SCH (08:51)
[2024-01-16] MEDS: FUROSEMIDE 20 MG TAB PO SCH (08:51)
[2024-01-16] MEDS: CLOPIDOGREL 75 MG TAB PO SCH (08:51)
[2024-01-16] MEDS: ASPIRIN 81 MG PO SCH (08:51)
[2024-01-16] MEDS: SENNOSIDES 8.6 MG TAB PO SCH (08:51)
--- NOTE | 2024-01-16 10:28 | P.PN ---
Subjective Progress Note Date: 01/16/24 Principal diagnosis: T11, T12, L1 vertebral body compression fractures, low back pain, other medical comorbidities Patient was evaluated today at bedside, he is resting in his hospital bed, his son is present at bedside. Patient appears comfortable on exam. He has not been out of bed at this time working with therapy. A TLSO brace prescription was signed today and provided for case management. Patient denies any numbness or tingling to the bilateral lower extremities, he denies any loss of bowel or bladder function, he denies any paresthesias to the bilateral lower extremities Objective - Vital Signs Vital signs: Vital Signs Temp 97.6 F 01/16/24 07:12 Pulse 83 01/16/24 07:12 Resp 19 01/16/24 07:12 BP 135/84 01/16/24 07:12 Pulse Ox 95 01/16/24 07:12 FiO2 Intake & Output 01/15/24 01/16/24 01/16/24 18:59 06:59 18:59 Weight 84.368 kg Other: Voiding Method Diaper Incontinent # Voids 0 1 1 # Bowel Movements 1 - Exam Gen: AOx3, NAD VSS stable at this time Integument: No open lesions, sores or areas of erythema to the lower thoracic and lumbar region Palpation: Mild tenderness with palpation to the lower thoracic and lumbar midline and paraspinal region ROM: Full range of motion in all major muscle groups of the bilateral lower extremities, no focal deficits appreciated Sensory Exam: Senosry exam to light touch is intact L2-S1 Motor: 4/5 strength appreciated the bilateral lower extremities with hip flexion, knee extension, knee flexion, plantarflexion, dorsiflexion, EHL, FHL Reflexes: Negative Priti's bilaterally Negative Babinski bilaterally Special Test: Negative straight leg raise bilaterally - Labs CBC & Chem 7: 01/16/24 07:43 01/16/24 07:43 Labs: Abnormal Lab Results - Last 24 Hours (Table) 01/15/24 01/16/24 01/16/24 Range/Units 21:05 05:47 07:43 Sodium 135 L (137-145) mmol/L Carbon Dioxide 18 L (22-30) mmol/L BUN 23 H (9-20) mg/dL Glucose 147 H (74-99) mg/dL POC Glucose (mg/dL) 129 H 140 H (70-110) mg/dL Assessment and Plan Assessment: Low back pain Vertebral body compression fractures of T11, T12, L1 Multilevel lumbar spondylosis Other medical comorbidities Plan: Patient remains stable at this time, no orthopedic surgical intervention is recommended at this time TLSO brace was prescribed, this was provided for case management today. Patient is to utilize the brace when up and ambulating longer distances, he does not need to wear while in bed Recommend PT/OT evaluation Pain control, Tylenol and low-dose muscle relaxers as needed DVT prophylaxis per primary medical service Weightbear as tolerated with walker Other medical specialty recommendations appreciated Will continue to follow patient during hospital stay Time with Patient: Less than 30
[2024-01-16 11:36] LABS: Glucose,Whole Blood 150 mg/dL (70-110)
[2024-01-16 16:44] LABS: Glucose,Whole Blood 161 mg/dL (70-110)
--- NOTE | 2024-01-16 17:28 | P.PN ---
Subjective Progress Note Date: 01/16/24 Interval History: This is a pleasant 88-year-old male who presented to the emergency department via EMS with falls and generalized weakness with severe back pain. Patient apparently few days ago fell backwards onto his back and did strike his head. Patient reports he denies any loss of consciousness although became progressively more weak over the last day or 2 with severe back pain. Patient was admitted to trauma services to orthopedics patient had multiple imaging done in the ER which showed moderate compression fractures of T11, T12, L1 of indeterminate age with no retropulsion or bony compromise of the spinal canal. Patient also underwent CT of the brain and neck with no acute bleed or mass effect noted and no acute trauma noted there were no labs drawn in the ER and patient was admitted as family cannot care for him any longer and may need possible placement. Medical placed on consult for management. Medications reviewed and resumed as patient follows with Dr. Shaquille Bravo in the outpatient setting with a past medical history of diabetes, chest pain/angina, heart failure, previous CVA/TIA, hypertension along with depression. PT/OT therapy consulted and social work consult placed. 01/16/2024--patient was seen and examined today. Alert oriented x 2-3. No acute distress. Patient denied any issues overnight. Sitting up in chair without any issues. Vitals reviewed, afebrile, slightly tachycardic 104, respiratory rate 18, saturating 91% on 2 L, blood pressure 111/71. WBCs, hemoglobin and platelet unremarkable. Sodium 135 potassium 4.8 CO2 18 BUN 23 creatinine 1.00. HbA1c 7.7. 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 Patient noted to have fractures of the T-spine and L1 that appears chronic Patient also underwent CT of the brain and neck which was negative for acute process Patient will need PT/OT therapy evaluation and social work consult if family feels they cannot care for him in the home and patient has been having increased weakness and recurrent falls Home medications reviewed and resumed as appropriate patient noted to be a diabetic and will add Accu-Cheks with before meals and at bedtime along with sliding scale and adjust accordingly Orthopedics as attending and will likely need ECF on discharge. Continue Tylenol as needed for pain or fever and nonnarcotics if possible given patient's age PT/OT consulted. PHYSICAL EXAMINATION: GENERAL: The patient is A&O x3, NAD HEENT: EOMI, Sclerae anicteric, Moist Mucous membranes Neck: Supple, Non tender, No JVD PULMONARY: Equal breath souds B/L, No wheezing, No crackles. CARDIOVASCULAR: S1, S2 present. No murmurs, rubs, or gallops. ABDOMEN: Soft, nontender, nondistended, normoactive bowel sounds. No guarding or rebound tenderness. MUSCULOSKELETAL: No edema, No cyanosis. No clubbing. Normal ROM. Intact pe ripheral pulses. EXTREMITIES: No cyanosis, clubbing, or pedal edema. NEUROLOGICAL: CN 2-12 grossly intact. No FND Skin: No Rash REVIEW OF SYSTEMS: CONSTITUTIONAL: No fever or chills. CARDIOVASCULAR: No chest pain, palpitations or syncope. PULMONARY: No shortness of breath, no cough, sore throat. GASTROINTESTINAL: No nausea, vomiting, diarrhea, abdominal pain. : No Dysuria, urgency, frequency. Extremities: No edema. NEUROLOGICAL: No headaches, no weakness, or numbness Dictation was produced using [employer] dictation software. please excuse any grammatical, word or spelling errors. Objective - Vital Signs Vital signs: Vital Signs Temp 97.5 F L 01/16/24 14:02 Pulse 104 H 01/16/24 14:02 Resp 18 01/16/24 14:02 BP 111/71 01/16/24 14:02 Pulse Ox 91 L 01/16/24 14:02 FiO2 Intake & Output 01/15/24 01/16/24 01/16/24 18:59 06:59 18:59 Weight 84.368 kg Other: Voiding Method Diaper Incontinent # Voids 0 1 2 # Bowel Movements 1 1 - Labs CBC & Chem 7: 01/16/24 07:43 01/16/24 07:43 Labs: Abnormal Lab Results - Last 24 Hours (Table) 01/15/24 01/16/24 01/16/24 Range/Units 21:05 05:47 07:43 Sodium 135 L (137-145) mmol/L Carbon Dioxide 18 L (22-30) mmol/L BUN 23 H (9-20) mg/dL Glucose 147 H (74-99) mg/dL POC Glucose (mg/dL) 129 H 140 H (70-110) mg/dL Hemoglobin A1c (<=6.0) % 01/16/24 01/16/24 01/16/24 Range/Units 07:43 11:35 16:42 Sodium (137-145) mmol/L Carbon Dioxide (22-30) mmol/L BUN (9-20) mg/dL Glucose (74-99) mg/dL POC Glucose (mg/dL) 150 H 161 H (70-110) mg/dL Hemoglobin A1c 7.7 H (<=6.0) %
[2024-01-16] MEDS: DONEPEZIL 10 MG TAB PO SCH (20:42)
[2024-01-16] MEDS: HYDROcodone/APAP 5-325MG 1 EACH TAB PO PRN (20:42)
[2024-01-16 20:46] LABS: Glucose,Whole Blood 149 mg/dL (70-110)
[2024-01-16] MEDS: QUEtiapine 50 MG TAB PO SCH (21:35)
[2024-01-17 06:01] LABS: Glucose,Whole Blood 124 mg/dL (70-110)
[2024-01-17 11:55] LABS: Glucose,Whole Blood 149 mg/dL (70-110)
--- NOTE | 2024-01-17 14:55 | P.PN ---
Subjective Progress Note Date: 01/17/24 Interval History: This is a pleasant 88-year-old male who presented to the emergency department via EMS with falls and generalized weakness with severe back pain. Patient apparently few days ago fell backwards onto his back and did strike his head. Patient reports he denies any loss of consciousness although became progressively more weak over the last day or 2 with severe back pain. Patient was admitted to trauma services to orthopedics patient had multiple imaging done in the ER which showed moderate compression fractures of T11, T12, L1 of indeterminate age with no retropulsion or bony compromise of the spinal canal. Patient also underwent CT of the brain and neck with no acute bleed or mass effect noted and no acute trauma noted there were no labs drawn in the ER and patient was admitted as family cannot care for him any longer and may need possible placement. Medical placed on consult for management. Medications reviewed and resumed as patient follows with Dr. Shaquille Bravo in the outpatient setting with a past medical history of diabetes, chest pain/angina, heart failure, previous CVA/TIA, hypertension along with depression. PT/OT therapy consulted and social work consult placed. 01/16/2024--patient was seen and examined today. Alert oriented x 2-3. No acute distress. Patient denied any issues overnight. Sitting up in chair without any issues. Vitals reviewed, afebrile, slightly tachycardic 104, respiratory rate 18, saturating 91% on 2 L, blood pressure 111/71. WBCs, hemoglobin and platelet unremarkable. Sodium 135 potassium 4.8 CO2 18 BUN 23 creatinine 1.00. HbA1c 7.7. 01/17/2024--patient was seen and examined today. No issues overnight. Family at bedside. Mentation improved. 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 Patient noted to have fractures of the T-spine and L1 that appears chronic TLSO brace. Patient also underwent CT of the brain and neck which was negative for acute process Patient will need PT/OT therapy evaluation and social work consult if family feels they cannot care for him in the home and patient has been having increased weakness and recurrent falls Home medications reviewed and resumed as appropriate patient noted to be a diab etic and will add Accu-Cheks with before meals and at bedtime along with sliding scale and adjust accordingly Orthopedics as attending and will likely need ECF on discharge. Continue Tylenol as needed for pain or fever and nonnarcotics if possible given patient's age PT/OT consulted--- anticipate subacute rehab PHYSICAL EXAMINATION: GENERAL: The patient is A&O x3, NAD HEENT: EOMI, Sclerae anicteric, Moist Mucous membranes Neck: Supple, Non tender, No JVD PULMONARY: Equal breath souds B/L, No wheezing, No crackles. CARDIOVASCULAR: S1, S2 present. No murmurs, rubs, or gallops. ABDOMEN: Soft, nontender, nondistended, normoactive bowel sounds. No guarding or rebound tenderness. MUSCULOSKELETAL: No edema, No cyanosis. No clubbing. Normal ROM. Intact peripheral pulses. EXTREMITIES: No cyanosis, clubbing, or pedal edema. NEUROLOGICAL: CN 2-12 grossly intact. No FND Skin: No Rash REVIEW OF SYSTEMS: CONSTITUTIONAL: No fever or chills. CARDIOVASCULAR: No chest pain, palpitations or syncope. PULMONARY: No shortness of breath, no cough, sore throat. GASTROINTESTINAL: No nausea, vomiting, diarrhea, abdominal pain. : No Dysuria, urgency, frequency. Extremities: No edema. NEUROLOGICAL: No headaches, no weakness, or numbness Dictation was produced using [employer] dictation software. please excuse any grammatical, word or spelling errors. Objective - Vital Signs Vital signs: Vital Signs Temp 97.6 F 01/17/24 08:03 Pulse 83 01/17/24 08:03 Resp 17 01/17/24 08:03 BP 133/75 01/17/24 08:03 Pulse Ox 95 01/17/24 08:03 FiO2 Intake & Output 01/16/24 01/17/24 01/17/24 18:59 06:59 18:59 Other: Voiding Method Diaper Toilet Toilet Incontinent # Voids 2 1 1 # Bowel Movements 1 - Labs CBC & Chem 7: 01/16/24 07:43 01/16/24 07:43 Labs: Abnormal Lab Results - Last 24 Hours (Table) 01/16/24 01/16/24 01/17/24 Range/Units 16:42 20:45 06:00 POC Glucose (mg/dL) 161 H 149 H 124 H (70-110) mg/dL 01/17/24 Range/Units 11:53 POC Glucose (mg/dL) 149 H (70-110) mg/dL
[2024-01-17] MEDS: ENOXAPARIN 40 MG/0.4 ML SYRINGE SQ SCH (16:13)
[2024-01-17 16:48] LABS: Glucose,Whole Blood 142 mg/dL (70-110)
[2024-01-17 20:52] LABS: Glucose,Whole Blood 222 mg/dL (70-110)
[2024-01-18 06:06] LABS: Glucose,Whole Blood 146 mg/dL (70-110)
[2024-01-18 07:23] VITALS: BP 134/85; PULSE 77; RESP 18; TEMP 97.1
[2024-01-18 11:44] LABS: Glucose,Whole Blood 239 mg/dL (70-110)
--- NOTE | 2024-01-18 11:49 | P.DS ---
Providers Date of admission: 01/15/24 11:55 Expected date of discharge: 01/18/24 Attending physician: Keenan Smith DO Consults: 01/15/24 12:08 Consult Physician Routine Consulting Provider: Shaquille Bravo Reason/Comments: medicine consult Do you want consulting provider notified?: Yes Primary care physician: Shaquille Bravo MD Hospital Course: Final Diagnoses: Vertebral body compression fractures of T11, T12, L1, status post fall, in a patient with history of falls Multilevel lumbar spondylosis Chronic hypoxic respiratory failure, wears O2 at home. COPD Chronic systolic CHF, ischemic cardiomyopathy, EF 35 to 40% (12/31) Mild to moderate mitral regurgitation,( aortic valve bioprosthesis stable without significant gradient regurgitation reported 12/31) History of CVA with residual left-sided weakness Diabetes mellitus, hemoglobin A1c 7.5 Hypertension Hyperlipidemia CAD, hx of CABG/AVR History of rheumatic fever This is an 88-year-old gentleman admitted with Vertebral body compression fractures of T11, T12, L1, status post fall, in a patient with medical history significant for CHF, CVA with residual left-sided weakness, diabetes mellitus, hemoglobin A1c 7.7, hypertension, hyperlipidemia, CAD history of CABG/AVR, history of rheumatic fever and multiple other medical issues. Evaluated by orthopedic surgery, recommending conservative management. TLSO brace at bedside. Sitting up in chair, denies chest pain, palpitations or increase in shortness of breath. Positive pain currently controlled on [place], Tylenol. Patient has been cleared by orthopedic surgery and will be discharged to today in a stable condition with guarded prognosis, pending final evaluation per physical therapy. The impression and plan of care has been dictated as directed. : I performed a history and examination of this patient, discussed the same with the dictator. I agree with the dictator's note ,documented as a scribe. Any additional findings or plans will be noted. Patient Condition at Discharge: Stable Plan - Discharge Summary New Discharge Prescriptions: New INSULIN LISPRO (HumaLOG) [humaLOG] 0 unit SQ ACHS #10 ml Enoxaparin [Lovenox] 40 mg SQ DAILY each Sennosides [Senokot] 8.6 mg PO DAILY tab HYDROcodone/APAP 5-325MG [[place] 5-325] 1 each PO Q6HR PRN #12 tab PRN Reason: Pain Acetaminophen Tab [Tylenol] 650 mg PO Q6HR PRN tab PRN Reason: Fever And/ Or Pain Continue Isosorbide Mononitrate ER [Imdur] 30 mg PO DAILY Clopidogrel [Plavix] 75 mg PO DAILY Furosemide [Lasix] 20 mg PO DAILY Empagliflozin [Jardiance] 10 mg PO DAILY Donepezil [Aricept] 10 mg PO HS Aspirin EC [Ecotrin Low Dose] 81 mg PO DAILY Cetirizine HCl [Zyrtec] 10 mg PO DAILY QUEtiapine [SEROquel] 50 mg PO HS Changed Insulin Glargine,Hum.rec.anlog [Lantus Solostar Pen] 10 units SQ DAILY #0 Discontinued Glimepiride [Amaryl] 2 mg PO AC-BID Glimepiride [Amaryl] 2 mg PO AC-BID Discharge Medication List Aspirin EC [Ecotrin Low Dose] 81 mg PO DAILY 05/14/22 [History] Clopidogrel [Plavix] 75 mg PO DAILY 05/14/22 [History] Isosorbide Mononitrate ER [Imdur] 30 mg PO DAILY 05/14/22 [History] Cetirizine HCl [Zyrtec] 10 mg PO DAILY 12/15/22 [History] Donepezil [Aricept] 10 mg PO HS 01/15/24 [History] Empagliflozin [Jardiance] 10 mg PO DAILY 01/15/24 [History] Furosemide [Lasix] 20 mg PO DAILY 01/15/24 [History] QUEtiapine [SEROquel] 50 mg PO HS 01/15/24 [History] Acetaminophen Tab [Tylenol] 650 mg PO Q6HR PRN tab 01/18/24 [Rx] Enoxaparin [Lovenox] 40 mg SQ DAILY each 01/18/24 [Rx] HYDROcodone/APAP 5-325MG [[place] 5-325] 1 each PO Q6HR PRN #12 tab 01/18/24 [Rx] INSULIN LISPRO (HumaLOG) [humaLOG] 0 unit SQ ACHS #10 ml 01/18/24 [Rx] Insulin Glargine,Hum.rec.anlog [Lantus Solostar Pen] 10 units SQ DAILY #0 01/18/24 [Rx] Sennosides [Senokot] 8.6 mg PO DAILY tab 01/18/24 [Rx] Follow up Appointment(s)/Referral(s): Shaquille Bravo MD [Primary Care Provider] - 1 Week (After discharge from subacute rehab) Jonathon Roger [NON-STAFF] - As Needed Heather Anne [NON-STAFF] - As Needed (TLSO brace) Activity/Diet/Wound Care/Special Instructions: Subacute rehab: Consistent carb diet; HS Snack CBC, BMP in 3 days Discharge/Stand Alone Forms: Adult Foster Senior Living List, Assisted Living Facilities, Personal Piercing Specialist
== END 2024-01-18 12:40 | disposition home health service (06) | DRG 552 ==
LOC: EC 09:01 → 4SSUR 11:55
PROVIDERS: ADMIT Orthopaedic Surgery; ATTEND Orthopaedic Surgery
DX: S22.080A Wedge compression fracture of T11-T12 vertebra, initial encounter for closed fracture (principal); S32.010A Wedge compression fracture of first lumbar vertebra, initial encounter for closed fracture; I50.22 Chronic systolic (congestive) heart failure; J96.11 Chronic respiratory failure with hypoxia; I69.354 Hemiplegia and hemiparesis following cerebral infarction affecting left non-dominant side; I25.10 Atherosclerotic heart disease of native coronary artery without angina pectoris; I25.5 Ischemic cardiomyopathy; I11.0 Hypertensive heart disease with heart failure; F32.A Depression, unspecified; E78.5 Hyperlipidemia, unspecified; E11.9 Type 2 diabetes mellitus without complications; W19.XXXA Unspecified fall, initial encounter; Z79.02 Long term (current) use of antithrombotics/antiplatelets; Z79.51 Long term (current) use of inhaled steroids; Z79.82 Long term (current) use of aspirin; Z79.84 Long term (current) use of oral hypoglycemic drugs; Z79.899 Other long term (current) drug therapy; Z82.0 Family history of epilepsy and other diseases of the nervous system; Z91.81 History of falling; Z95.1 Presence of aortocoronary bypass graft; M47.816 Spondylosis without myelopathy or radiculopathy, lumbar region; J44.9 Chronic obstructive pulmonary disease, unspecified
CPT/HCPCS: 70450; 72125; 72128; 72131; 80048; 83036; 83735; 85025; 93005; 99285

== ENCOUNTER 2024-03-26 21:19 | Inpatient (IN) | payer MEDICARE, BC ==
--- NOTE | 2024-03-26 21:41 | ED ---
Altered Mental Status HPI - General Chief Complaint: Altered Mental Status Stated Complaint: AMS Time Seen by Provider: 03/26/24 21:39 Source: patient, family, RN notes reviewed, old records reviewed Mode of arrival: wheelchair Limitations: no limitations - History of Present Illness Initial Comments: This is an 88-year-old male who is presenting after deterioration due to recent significant life stressor life event. Patient has altered mental status weakness falls unable to organize thoughts and significant failure and activities of daily living going on for a few weeks now worse malick BARRIOS Complaint: altered mental status, confusion, weakness -: week(s) Severity: moderate Consistency of Symptoms: getting worse Associated Symptoms: weakness - Related Data Home Medications Medication Instructions Recorded Confirmed Aspirin EC [Ecotrin Low Dose] 81 mg PO DAILY 05/14/22 01/15/24 Clopidogrel [Plavix] 75 mg PO DAILY 05/14/22 01/15/24 Isosorbide Mononitrate ER [Imdur] 30 mg PO DAILY 05/14/22 01/15/24 Cetirizine HCl [Zyrtec] 10 mg PO DAILY 12/15/22 01/15/24 Donepezil [Aricept] 10 mg PO HS 01/15/24 01/15/24 Empagliflozin [Jardiance] 10 mg PO DAILY 01/15/24 01/15/24 Furosemide [Lasix] 20 mg PO DAILY 01/15/24 01/15/24 QUEtiapine [SEROquel] 50 mg PO HS 01/15/24 01/15/24 Previous Rx's Medication Instructions Recorded Acetaminophen Tab [Tylenol] 650 mg PO Q6HR PRN tab 01/18/24 Enoxaparin [Lovenox] 40 mg SQ DAILY each 01/18/24 HYDROcodone/APAP 5-325MG [[place] 1 tab PO Q6HR PRN 3 Days #12 tab 01/18/24 5-325] Insulin Glargine,Hum.rec.anlog 10 units SQ DAILY #0 01/18/24 [Lantus Solostar Pen] Sennosides [Senokot] 8.6 mg PO DAILY tab 01/18/24 Allergies Allergy/AdvReac Type Severity Reaction Status Date / Time No Known Allergies Allergy Verified 03/26/24 21:32 Review of Systems ROS Statement: Those systems with pertinent positive or pertinent negative responses have been documented in the HPI. ROS Other: All systems not noted in ROS Statement are negative. Past Medical History Past Medical History: Chest Pain / Angina, Heart Failure, CVA/TIA, Diabetes Mellitus, Hypertension Additional Past Medical History / Comment(s): rheumatic fever as child. 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 History of Any Multi-Drug Resistant Organisms: None Reported Past Surgical History: Appendectomy Additional Past Surgical History / Comment(s): 2018 open heart surgery for aortic valve Past Anesthesia/Blood Transfusion Reactions: No Reported Reaction Past Psychological History: Depression Smoking Status: Never smoker Past Alcohol Use History: None Reported Past Drug Use History: None Reported - Past Family History Mother Family Medical History: Rheumatoid Arthritis (RA) Father Additional Family Medical History / Comment(s): at 75 years old with alzheimer's General Exam Limitations: no limitations, altered mental status General appearance: alert, in no apparent distress, lethargic Head exam: Present: atraumatic, normocephalic, normal inspection Eye exam: Present: normal appearance, PERRL, EOMI. Absent: scleral icterus, conjunctival injection, periorbital swelling ENT exam: Present: normal exam, mucous membranes moist Neck exam: Present: normal inspection. Absent: tenderness, meningismus, lymphadenopathy Respiratory exam: Present: normal lung sounds bilaterally. Absent: respiratory distress, wheezes, rales, rhonchi, stridor Cardiovascular Exam: Present: regular rate, normal rhythm, normal heart sounds. Absent: systolic murmur, diastolic murmur, rubs, gallop, clicks GI/Abdominal exam: Present: soft, normal bowel sounds. Absent: distended, tenderness, guarding, rebound, rigid Extremities exam: Present: normal inspection, full ROM, normal capillary refill. Absent: tenderness, pedal edema, joint swelling, calf tenderness Back exam: Present: normal inspection Neurological exam: Present: alert, oriented X3, CN II-XII intact Psychiatric exam: Present: normal affect, normal mood Skin exam: Present: warm, dry, intact, normal color. Absent: rash Course Vital Signs 03/26/24 21:32 Temperature 97.8 F Pulse Rate 74 Respiratory 16 Rate Blood Pressure 124/70 O2 Sat by Pulse 90 L Oximetry - Reevaluation(s) Reevaluation #1: 03/26/24 21:40 Medical records reviewed Reevaluation #2: 03/27/24 01:16 Patient has no change in symptoms here in the ER Reevaluation #3: 03/27/24 01:16 Patient informed of results and questions answered Reevaluation #4: Was pt. sent in by a medical professional or institution (, [facility], [facility], urgent care, hospital, or skilled nursing...) When possible be specific @ -no Did you speak to anyone other than the patient for history (EMS, parent, family, police, friend...)? What history was obtained from this source @ -no Did you review nursing and triage notes (agree or disagree)? Why? @ -agree Are old charts reviewed (outside hosp., previous admission, EMS record, old EKG, old radiological studies, urgent care reports/EKG's, skilled nursing records)? Report findings @ -yes Differential Diagnosis (chest pain, altered mental status, abdominal pain women, abdominal pain men, vaginal bleeding, weakness, fever, dyspnea, syncope, headache, dizziness, GI bleed, back pain, seizure, CVA, palpatations, mental health, musculoskeletal)? @ -prior EKG interpreted by me (3pts min.). @ -yes X-rays interpreted by me (1pt min.). @ -yes negative for acute disease CT interpreted by me (1pt min.). @ -no U/S interpreted by me (1pt. min.). @ -no What testing was considered but not performed or refused? (CT, X-rays, U/S, labs)? Why? @ -none What meds were considered but not given or refused? Why? @ -none Did you discuss the management of the patient with other professionals (professionals i.e. , [facility], [facility], lab, RT, psych nurse, social insurance specialist, operator prefinish, teacher, chief procurement officer, counseling case manager)? Give summary @ -no Was smoking cessation discussed for >3mins.? @ -no Was critical care preformed (if so, how long)? @ -no Were there social determinants of health that impacted care today? How? (Homelessness, low income, unemployed, alcoholism, drug addiction, transportation, low edu. Level, literacy, decrease access to med. care, senior care, rehab)? @ -none Was there de-escalation of care discussed even if they declined (Discuss DNR or withdrawal of care, Hospice)? DNR status @ -no What co-morbidities impacted this encounter? (DM, HTN, Smoking, COPD, CAD, Cancer, CVA, ARF, Chemo, Hep., AIDS, mental health diagnosis, sleep apnea, morbid obesity)? @ -none Was patient admitted / discharged? Hospital course, mention meds given and route, prescriptions, significant lab abnormalities, going to OR and other pertinent info. @ - Undiagnosed new problem with uncertain prognosis? @ -no Drug Therapy requiring intensive monitoring for toxicity (Heparin, Nitro, Insulin, Cardizem)? @ -no Were any procedures done? @ -no Diagnosis/symptom? @ - Acute, or Chronic, or Acute on Chronic? @ -Acute Uncomplicated (without systemic symptoms) or Complicated (systemic symptoms)? @ -Complicated Side effects of treatment? @ -no Exacerbation, Progression, or Severe Exacerbation? @ -exacerbation Poses a threat to life or bodily function? How? (Chest pain, USA, MT, pneumonia, PE, COPD, DKA, ARF, appy, cholecystitis, CVA, Diverticulitis, Homicidal, Suicidal, threat to staff... and all critical care pts) @ -yes Reevaluation #5: Differential Altered Mental Status: Hypoglycemia, DKA, hypercapnia, ETOH, overdose, CO poisoning, trauma, myxedema coma, HTN encephalopathy, infection, encephalitis, psychosis, intercranial hemorrhage, hepatic encephalopathy, meningitis, CVA, this is not meant to be an all-inclusive list - Consultations Consultation #1: Spoke with [facility] who agrees to admit this patient Medical Decision Making - Medical Decision Making 88 male will be admitted for altered mental status and weakness - Lab Data Result diagrams: 03/26/24 22:00 03/26/24 22:00 Lab Results 03/26/24 03/26/24 03/26/24 Range/Units 22:00 22:00 22:00 WBC 7.9 (3.8-10.6) k/uL RBC 4.93 (4.30-5.90) m/uL Hgb 15.6 (13.0-17.5) gm/dL Hct 47.5 (39.0-53.0) % MCV 96.4 (80.0-100.0) fL MCH 31.6 (25.0-35.0) pg MCHC 32.8 (31.0-37.0) g/dL RDW 13.8 (11.5-15.5) % Plt Count 213 (150-450) k/uL MPV 7.6 Neutrophils % 71 % Lymphocytes % 16 % Monocytes % 6 % Eosinophils % 4 % Basophils % 1 % Neutrophils # 5.6 (1.3-7.7) k/uL Lymphocytes # 1.3 (1.0-4.8) k/uL Monocytes # 0.5 (0-1.0) k/uL Eosinophils # 0.3 (0-0.7) k/uL Basophils # 0.1 (0-0.2) k/uL PT 11.2 (10.0-12.5) sec INR 1.0 (<1.2) APTT 25.7 (22.0-30.0) sec Sodium 140 (137-145) mmol/L Potassium 4.4 (3.5-5.1) mmol/L Chloride 109 H (98-107) mmol/L Carbon Dioxide 21 L (22-30) mmol/L Anion Gap 10 mmol/L BUN 26 H (9-20) mg/dL Creatinine 1.11 (0.66-1.25) mg/dL Est GFR (CKD-EPI)AfAm 69 (>60 ml/min/1.73 sqM) Est GFR (CKD-EPI)NonAf 60 (>60 ml/min/1.73 sqM) Glucose 213 H (74-99) mg/dL POC Glucose (mg/dL) (70-110) mg/dL POC Glu Rn Private Duty ID Calcium 9.2 (8.4-10.2) mg/dL Total Bilirubin 1.0 (0.2-1.3) mg/dL AST 22 (17-59) U/L ALT 18 (4-49) U/L Alkaline Phosphatase 147 H (38-126) U/L Ammonia (<30) umol/L Troponin I (0.000-0.034) ng/mL Total Protein 7.5 (6.3-8.2) g/dL Albumin 4.3 (3.5-5.0) g/dL Salicylates <1.0 mg/dL Acetaminophen <10.0 ug/mL Serum Alcohol <10 mg/dL 03/26/24 03/26/24 03/26/24 Range/Units 22:00 22:00 22:05 WBC (3.8-10.6) k/uL RBC (4.30-5.90) m/uL Hgb (13.0-17.5) gm/dL Hct (39.0-53.0) % MCV (80.0-100.0) fL MCH (25.0-35.0) pg MCHC (31.0-37.0) g/dL RDW (11.5-15.5) % Plt Count (150-450) k/uL MPV Neutrophils % % Lymphocytes % % Monocytes % % Eosinophils % % Basophils % % Neutrophils # (1.3-7.7) k/uL Lymphocytes # (1.0-4.8) k/uL Monocytes # (0-1.0) k/uL Eosinophils # (0-0.7) k/uL Basophils # (0-0.2) k/uL PT (10.0-12.5) sec INR (<1.2) APTT (22.0-30.0) sec Sodium (137-145) mmol/L Potassium (3.5-5.1) mmol/L Chloride (98-107) mmol/L Carbon Dioxide (22-30) mmol/L Anion Gap mmol/L BUN (9-20) mg/dL Creatinine (0.66-1.25) mg/dL Est GFR (CKD-EPI)AfAm (>60 ml/min/1.73 sqM) Est GFR (CKD-EPI)NonAf (>60 ml/min/1.73 sqM) Glucose (74-99) mg/dL POC Glucose (mg/dL) 192 H (70-110) mg/dL POC Glu Rn Private Duty ID [facility] Calcium (8.4-10.2) mg/dL Total Bilirubin (0.2-1.3) mg/dL AST (17-59) U/L ALT (4-49) U/L Alkaline Phosphatase (38-126) U/L Ammonia <9 (<30) umol/L Troponin I <0.012 (0.000-0.034) ng/mL Total Protein (6.3-8.2) g/dL Albumin (3.5-5.0) g/dL Salicylates mg/dL Acetaminophen ug/mL Serum Alcohol mg/dL - Radiology Data Radiology results: report reviewed, image reviewed Disposition Clinical Impression: Gravely disabled, Dehydration, Altered mental status, Depression, Stressful life events affecting family and household Disposition: ADMITTED IP TO THIS [facility] Condition: Fair Is patient prescribed a controlled substance at d/c from ED?: No Referrals: Shaquille Bravo MD [Primary Care Provider] - 1-2 days Time of Disposition: 01:00
[2024-03-26 22:06] LABS: Glucose,Whole Blood 192 mg/dL (70-110)
[2024-03-26 22:24] LABS: Basophils # (A) 0.1 k/uL (0-0.2); Basophils % (A) 1 %; Eosinophils # (A) 0.3 k/uL (0-0.7); Eosinophils % (A) 4 %; HCT 47.5 % (39.0-53.0); HGB 15.6 gm/dL (13.0-17.5); Lymphocytes # (A) 1.3 k/uL (1.0-4.8); Lymphocytes % (A) 16 %; MCH 31.6 pg (25.0-35.0); MCHC 32.8 g/dL (31.0-37.0); MCV 96.4 fL (80.0-100.0); Mean Platelet Volume 7.6; Monocytes # (A) 0.5 k/uL (0-1.0); Monocytes % (A) 6 %; Neutrophils # (A) 5.6 k/uL (1.3-7.7); Neutrophils % (A) 71 %; Platelet Count 213 k/uL (150-450); RBC 4.93 m/uL (4.30-5.90); RDW 13.8 % (11.5-15.5); WBC 7.9 k/uL (3.8-10.6)
[2024-03-26 22:26] LABS: ALT 18 U/L (4-49); AST 22 U/L (17-59); Acetaminophen <10.0 ug/mL; African American GFR (CKD) 69 (>60 ml/min/1.73 sqM); Albumin 4.3 g/dL (3.5-5.0); Alcohol <10 mg/dL; Alkaline Phosphatase 147 U/L (38-126); Anion Gap 10 mmol/L; Blood Urea Nitrogen 26 mg/dL (9-20); Calcium 9.2 mg/dL (8.4-10.2); Carbon Dioxide 21 mmol/L (22-30); Chloride 109 mmol/L (98-107); Glucose 213 mg/dL (74-99); Non-African American GFR(CKD) 60 (>60 ml/min/1.73 sqM); Potassium 4.4 mmol/L (3.5-5.1); Salicylate <1.0 mg/dL; Sodium 140 mmol/L (137-145); Total Protein 7.5 g/dL (6.3-8.2)
[2024-03-26 22:29] LABS: Partial Thromboplastin Time 25.7 sec (22.0-30.0); Prothrombin Time 11.2 sec (10.0-12.5)
--- NOTE | 2024-03-27 00:39 | CT ---
EXAM: CT Head Without Intravenous Contrast CLINICAL HISTORY: ITS.REASON CT Reason: Altered mental status TECHNIQUE: Axial computed tomography images of the head/brain without intravenous contrast. CTDI is 50.8 mGy and DLP is 1308 mGy-cm. This CT exam was performed using one or more of the following dose reduction techniques: automated exposure control, adjustment of the mA and/or kV according to patient size, and/or use of iterative reconstruction technique. COMPARISON: CT Head dated 01/15/24 FINDINGS: Brain: Right frontal lobe/insular encephalomalacia, stable. Volume loss with prominent ventricles and sulci. Periventricular and subcortical white matter hypoattenuation likely reflects chronic small vessel disease. No hemorrhage. Ventricles: See above. Bones/joints: Unremarkable. No acute fracture. Soft tissues: Unremarkable. Sinuses: Opacified left maxillary sinus and mucoperiosteal thickening, stable. Likely reflects chronic sinusitis changes. No sinus fluid levels. Mastoid air cells: Unremarkable as visualized. No mastoid effusion. IMPRESSION: No acute findings in the head/brain.
[2024-03-27] MEDS ORDERED: NALOXONE 0.4 MG/ML 1 ML VIAL IV PRN (01:15)
[2024-03-27] MEDS ORDERED: ONDANSETRON 4 MG/2 ML VIAL IVP PRN (01:15)
[2024-03-27] MEDS: SODIUM CHLORIDE 0.9% 1,000 ML IV ONE (01:16)
--- NOTE | 2024-03-27 01:43 | XR ---
EXAM: XR Chest, 2 Views CLINICAL HISTORY: ITS.REASON XR Reason: altered mental status TECHNIQUE: Frontal and lateral views of the chest. COMPARISON: XR Chest dated 05/14/22, CT chest dated 12/15/22 FINDINGS: Lungs: Low lung volumes. Calcified right lung granuloma. Mild left basilar opacity likely due to prominent pericardial fat as seen on CT. Pleural space: Unremarkable. No pneumothorax. Heart: Prosthetic aortic valve, stable. No cardiomegaly. Mediastinum: Unremarkable. Normal mediastinal contour. Bones/joints: Median sternotomy wires. Lower thoracic compression deformities, stable. IMPRESSION: No acute findings in the chest.
[2024-03-27] MEDS: SODIUM CHLORIDE 0.9% 1,000 ML IV SCH (02:24)
[2024-03-27] MEDS: MORPHINE SULFATE 4 MG/ML SYRINGE IV PRN (02:33)
[2024-03-27 02:36] LABS: Appearance,Urine Clear (Clear); Bilirubin,Urine Negative (Negative); Blood,Urine Negative (Negative); Color,Urine Colorless; Glucose,Urine (UA) 4+ (Negative); Ketones,Urine Trace (Negative); Leukocyte Esterase,Urine Negative (Negative); Nitrite,Urine Negative (Negative); PH, Urine 5.5 (5.0-8.0); Protein,Urine Negative (Negative); Specific Gravity,Urine 1.036 (1.001-1.035); Urobilinogen,Urine <2.0 mg/dL (<2.0)
[2024-03-27 02:48] LABS: Cocaine Screen,Urine Not Detected (NotDetected); Opiate Screen,Urine Not Detected (NotDetected); Phencyclidine Screen,Urine Not Detected (NotDetected)
[2024-03-27 02:49] LABS: Amphetamine Screen,Urine Not Detected (NotDetected); Barbiturate Screen,Urine Not Detected (NotDetected); Benzodiazepines Screen,Urine Not Detected (NotDetected); Methadone Screen, Urine Not Detected (NotDetected); Oxycodone Screen, Urine Not Detected (NotDetected); Tricyclic Antidepressant,Urine Not Detected (NotDetected); Urn Cannabinoid Scrn Not Detected (NotDetected)
[2024-03-27 08:31] LABS: Glucose,Whole Blood 118 mg/dL (70-110)
[2024-03-27] MEDS ORDERED: DEXTROSE 50% SYRINGE 50 ML IVP PRN ×2 (09:09)
[2024-03-27 12:10] LABS: Glucose,Whole Blood 246 mg/dL (70-110)
[2024-03-27] MEDS: INSULIN ASPART (NovoLOG) 100 UNIT/ML VIAL SQ SCH (12:15)
--- NOTE | 2024-03-27 12:16 | P.CN ---
Psychiatric Consult - . Consult:: IDENTIFYING DATA: Patient is a 88-year-old retired male who lives with his . He is admitted for altered mental status and psychiatry is consulted for altered mental status HPI: patient states that 6 weeks ago, his filed for divorce after 68 years of marriage. States that it did not bother him at that time, but began bothering him about 3 days ago and he thinks it may be because now he realizes that the divorce will actually occur. Prior to that, he assumed that "it would go away" he reports depression and poor sleep as a result over the past few days. He also states that he has been angrier. Patient denies any suicidal or homicidal ideations intent or plan. At this time patient denies any auditory or visual hallucinations. Patient denies any flight of ideas racing thoughts and increased in goal directed behavior. also spoke with son, who is his guardian. Son states that his has picks disease. They have been having marital issues for the past 2 years. Over the past 4 days, patient became significantly angrier. For example, he threatened to burn his 's chair. PAST PSYCHIATRIC HISTORY: taking Aricept 10 mg daily at bedtime due to a history of dementia in the family, patient has not been diagnosed with dementia, on Seroquel 25 mg daily at bedtime for sleep,[Patient denies any previous psychiatric hospitalizations.] [Patient denies any psychiatric outpatient follow-up. family is currently on a waiting list for therapy.] [Patient denies any history of suicide attempts in the past.] PMH (per chart): Vertebral body compression fractures of T11, T12, L1, status post fall, in a patient with history of falls Multilevel lumbar spondylosis Chronic hypoxic respiratory failure, wears O2 at home. COPD Chronic systolic CHF, ischemic cardiomyopathy, EF 35 to 40% (12/31) Mild to moderate mitral regurgitation,( aortic valve bioprosthesis stable without significant gradient regurgitation reported 12/31) History of CVA with residual left-sided weakness Diabetes mellitus, hemoglobin A1c 7.5 Hypertension Hyperlipidemia CAD, hx of CABG/AVR History of rheumatic fever ALLERGIES: as per EMR CHEMICAL DEPENDENCY HISTORY: denies FAMILY PSYCHIATRIC/SUBSTANCE USE HISTORY: depression runs in the family, Alzheimer's in father, opioid abuse in daughter and grandson SOCIAL HISTORY: was for 68 years but filed for divorce 6 weeks ago, currently still living lives with his , currently retired, 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 Behavior: Patient is laying in bed without any agitated behavior. Speech: Patient's speech is [fluent and nonpressured.] Mood/Affect: Patient reports their mood is [depressed], affect is congruent and constricted. Suicidality/Homicidality: Patient denies having any homicidal ideation intent or plan. [Denies any suicidal ideations intent or plan] Perceptions: Patient denies any visual hallucinations [and denies any auditory hallucinations] Though content/process: [There is no evidence of any delusional thought content and thought process is linear and goal-directed.] Memory and concentration: AOX3, grossly intact for the purposes of this session. Judgment and insight: impaired IMPRESSIONS: on examination, patient is AAO 3 and no significant signs of dementia or memory impairment or cognitive impairment are noted. Upon talking with family, it appears that the behavioral changes happening in the form of intense anger over the past 4 days. This can be due to the dehydration which patient is currently being treated for or other underlying medical condition, or due to circumstantial reasons such as the divorce and significant familial issues. Explained this to family and provided with the option of increasing Seroquel to help with the anger which patient and family accepted. 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 underlying medical condition) PLAN: -Increase seroquel to 50 mg qhs -Patient is on waitlist for outpatient therapy which he will significantly benefit from -Continue to treat dehydration -Delirium precautions recommended with patient including - avoiding use of narcotics and NEWSAGENT sedatives, limit anticholinergic medications when possible, frequent re-orientation, minimize use of restraints, open window shades during the day and close them at night -If by the end of medical treatment / discharge, family states that patient is not at his mental baseline, please ask psychiatry to follow up, otherwise will sign off -psychiatrically cleared, does not need inpatient psychiatry - 03/27/24 12:06
--- NOTE | 2024-03-27 13:50 | P.HPIM ---
History of Present Illness H&P Date: 03/27/24 History of present illness; patient 88-year-old gentleman with past medical history significant for CHF, CVA, hypertension, diabetes mellitus who presented to the ER for confusion and debility. Patient is going through stressful events at home, as there are thoughts of his him that stressed him. Patient has been found to be more confused and argumentative last few days. Patient is requiring generalized weakness. Patient is unable to take care of himself. There is no complaint of fever or chills. There is no complaint nausea, vomiting or abdominal pain. There is no complaint of chest pain or shortness of breath. Initial lab work done in the ER showed WBC 7.9, hemoglobin 15.6, platelet count 213, sodium 140, potassium 4.4, BUN 20, creatinine 1.11, glucose 213, AST 22, A LT 18 UA negative for infection Urine drug screen negative eKG done in the ER showed heart rate of 72, no ST segment elevation or depression seen, no T-wave inversions seen. Chest x-ray done in the ER showed no acute cardiopulmonary process CT head done showed no acute intracranial process Patient admitted to internal medicine service REVIEW OF SYSTEMS: CONSTITUTIONAL: No fever, no malaise, no fatigue. HEENT: No recent visual problems or hearing problems. Denied any sore throat. CARDIOVASCULAR: No chest pain, orthopnea, PND, no palpitations, no syncope. PULMONARY: No shortness of breath, no cough, no hemoptysis. GASTROINTESTINAL: No diarrhea, no nausea, no vomiting, no abdominal pain. NEUROLOGICAL: No headaches, no weakness, no numbness. HEMATOLOGICAL: Denies any bleeding or petechiae. GENITOURINARY: Denies any burning micturition, frequency, or urgency. MUSCULOSKELETAL/RHEUMATOLOGICAL: Denies any joint pain, swelling, or any muscle pain. ENDOCRINE: Denies any polyuria or polydipsia. The rest of the 14-point review of systems is negative. PHYSICAL EXAMINATION: GENERAL: The patient is alert and oriented x3, not in any acute distress. Well developed, well nourished. HEENT: Pupils are round and equally reacting to light. EOMI. No scleral icterus. No conjunctival pallor. Normocephalic, atraumatic. No pharyngeal erythema. No thyromegaly. CARDIOVASCULAR: S1 and S2 present. No murmurs, rubs, or gallops. PULMONARY: Chest is clear to auscultation, no wheezing or crackles. ABDOMEN: Soft, nontender, nondistended, normoactive bowel sounds. No palpable organomegaly. MUSCULOSKELETAL: No joint swelling or deformity. EXTREMITIES: No cyanosis, clubbing, or pedal edema. NEUROLOGICAL: Gross neurological examination did not reveal any focal deficits. SKIN: No rashes. 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 Continue same treatment. Continue with symptomatic treatment. Resume home medication. Monitor labs and vitals. DVT and GI prophylaxis. Further recommendations as per clinical course of the patient Dictation was produced using [employer] dictation software. please excuse any grammatical, word or spelling errors. Past Medical History Past Medical History: Chest Pain / Angina, Heart Failure, CVA/TIA, Diabetes Mellitus, Hypertension Additional Past Medical History / Comment(s): rheumatic fever as child. 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 Past Anesthesia/Blood Transfusion Reactions: No Reported Reaction Past Psychological History: Depression Smoking Status: Never smoker Past Alcohol Use History: None Reported Past Drug Use History: None Reported - Past Family History Mother Family Medical History: Rheumatoid Arthritis (RA) Father Additional Family Medical History / Comment(s): at 75 years old with alzheimer's Medications and Allergies Home Medications Medication Instructions Recorded Confirmed Type Aspirin EC [Ecotrin Low Dose] 81 mg PO DAILY 05/14/22 01/15/24 History Clopidogrel [Plavix] 75 mg PO DAILY 05/14/22 01/15/24 History Isosorbide Mononitrate ER [Imdur] 30 mg PO DAILY 05/14/22 01/15/24 History Cetirizine HCl [Zyrtec] 10 mg PO DAILY 12/15/22 01/15/24 History Donepezil [Aricept] 10 mg PO HS 01/15/24 01/15/24 History Empagliflozin [Jardiance] 10 mg PO DAILY 01/15/24 01/15/24 History Furosemide [Lasix] 20 mg PO DAILY 01/15/24 01/15/24 History QUEtiapine [SEROquel] 50 mg PO HS 01/15/24 01/15/24 History Acetaminophen Tab [Tylenol] 650 mg PO Q6HR PRN tab 01/18/24 Rx Enoxaparin [Lovenox] 40 mg SQ DAILY each 01/18/24 Rx HYDROcodone/APAP 5-325MG [Willard 1 tab PO Q6HR PRN 3 Days #12 tab 01/18/24 Rx 5-325] Insulin Glargine,Hum.rec.anlog 10 units SQ DAILY #0 01/18/24 01/15/24 Rx [Lantus Solostar Pen] Sennosides [Senokot] 8.6 mg PO DAILY tab 01/18/24 Rx Allergies Allergy/AdvReac Type Severity Reaction Status Date / Time No Known Allergies Allergy Verified 03/26/24 21:32 Physical Exam Vitals: Vital Signs Temp Pulse Resp BP Pulse Ox 03/27/24 08:51 72 18 129/69 96 03/27/24 06:13 97.8 F 67 18 142/83 96 03/27/24 03:08 97.8 F 67 18 139/76 97 03/27/24 02:30 73 19 139/80 96 03/27/24 01:18 63 18 134/77 97 03/26/24 21:32 97.8 F 74 16 124/70 90 L Intake and Output 03/26/24 03/27/24 03/27/24 22:59 06:59 14:59 Other: Weight 80.739 kg Results CBC & Chem 7: 03/26/24 22:00 03/26/24 22:00 Labs: Abnormal Lab Results - Last 24 Hours (Table) 03/26/24 03/26/24 03/27/24 Range/Units 22:00 22:05 02:05 Chloride 109 H (98-107) mmol/L Carbon Dioxide 21 L (22-30) mmol/L BUN 26 H (9-20) mg/dL Glucose 213 H (74-99) mg/dL POC Glucose (mg/dL) 192 H (70-110) mg/dL Alkaline Phosphatase 147 H (38-126) U/L Ur Specific Sandoval 1.036 H (1.001-1.035) Urine Glucose (UA) 4+ H (Negative) Urine Ketones Trace H (Negative) 03/27/24 Range/Units 08:29 Chloride (98-107) mmol/L Carbon Dioxide (22-30) mmol/L BUN (9-20) mg/dL Glucose (74-99) mg/dL POC Glucose (mg/dL) 118 H (70-110) mg/dL Alkaline Phosphatase (38-126) U/L Ur Specific Sandoval (1.001-1.035) Urine Glucose (UA) (Negative) Urine Ketones (Negative)
[2024-03-27 18:25] LABS: Glucose,Whole Blood 202 mg/dL (70-110)
[2024-03-27] MEDS: ACETAMINOPHEN TAB 325 MG TAB PO PRN (20:01)
[2024-03-27] MEDS: QUEtiapine 50 MG TAB PO SCH (21:10)
[2024-03-28 05:52] LABS: Glucose,Whole Blood 110 mg/dL (70-110)
[2024-03-28 08:49] LABS: ALT 13 U/L (10-49); AST 15 U/L (14-35); Albumin 3.8 g/dL (3.8-4.9); Albumin/Globulin Ratio 1.46 Ratio (1.60-3.17); Alkaline Phosphatase 112 U/L (41-126); BUN/Creat Ratio 15.12 Ratio (12.00-20.00); Basophils # (A) 0.09 X 10*3/uL (0.00-0.10); Basophils % (A) 1.4 %; Blood Urea Nitrogen 12.1 mg/dL (9.0-27.0); Calcium 8.9 mg/dL (8.7-10.3); Carbon Dioxide 20.3 mmol/L (21.6-31.8); Chloride 108 mmol/L (96-109); Eosinophils # (A) 0.43 X 10*3/uL (0.04-0.35); Eosinophils % (A) 6.5 %; Globulin 2.6 g/dL (1.6-3.3); Glucose 129 mg/dL (70-110); HGB 15.2 g/dL (13.0-17.0); Lymphocytes # (A) 1.56 X 10*3/uL (0.90-5.00); Lymphocytes % (A) 23.7 %; MCV 93.7 FL (80.0-97.0); Mean Platelet Volume 10.2 FL (9.5-12.2); Monocytes # (A) 0.78 X 10*3/uL (0.20-1.00); Monocytes % (A) 11.9 %; NRBC Per 100 WBC 0 X 10*3/uL (0.00-0.01); Neutrophils # (A) 3.67 X 10*3/uL (1.80-7.70); Neutrophils % (A) 55.9 %; Phosphorus 2.8 mg/dL (2.4-5.1); Platelet Count 184 X 10*3/uL (140-440); Potassium 3.9 mmol/L (3.5-5.5); RBC 4.91 X 10*6/uL (4.40-5.60); RDW 14.2 % (11.5-14.5); Sodium 139 mmol/L (135-145); Total Bilirubin 1.1 mg/dL (0.3-1.2); Total Protein 6.4 g/dL (6.2-8.2); WBC 6.57 X 10*3/uL (4.50-10.00)
[2024-03-28] MEDS ORDERED: IPRATROPIUM-ALBUTEROL 3 ML NEB INHALATION PRN (11:25)
--- NOTE | 2024-03-28 11:42 | P.PN ---
Subjective Progress Note Date: 03/28/24 This is an 88-year-old gentleman admitted with dehydration, weakness, falls, undergoing major personal stress-anger/depression -grieving over recently filed for divorce 6 weeks prior, with history of vertebral body compression fractures of T11, T12, L1, multilevel lumbar spondylosis-uses walker for gait dysfunction, chronic hypoxic respiratory failure, COPD, chronic systolic CHF, ischemic cardiomyopathy, CVA with residual left-sided weakness, diabetes mellitus, hypertension, hyperlipidemia, CAD, CABG/AVR,, rheumatic fever multiple medical issues. Evaluated by psychiatry, reporting patient is alert and oriented x 3 with no significant signs of dementia, memory impairment or cognitive impairment. Recommendations noted. Objective - Vital Signs Vital signs: Vital Signs Temp 97.4 F L 03/28/24 07:00 Pulse 67 03/28/24 07:00 Resp 15 03/28/24 07:00 BP 145/78 03/28/24 07:00 Pulse Ox 96 03/28/24 07:00 FiO2 Intake & Output 03/27/24 03/28/24 03/28/24 18:59 06:59 18:59 Output Total 1300 Balance -1300 Output: Urine 1300 Other: Voiding Method External Catheter # Bowel Movements 0 - Exam GENERAL: Elderly appearing , sitting up in bed , well-nourished ,alert and oriented x3,NAD. HEENT: Normocephalic, pupils are round and equal, reacting to light. EOMI. No scleral icterus. No conjunctival pallor. CARDIOVASCULAR: S1 and S2 present. Systolic murmur. PULMONARY: Unlabored, equal air entry, diminished breath sounds bilaterally otherwise chest is clear to auscultation, no wheezing or crackles. ABDOMEN: Soft, nontender, nondistended, normoactive bowel sounds. No palpable organomegaly. EXTREMITIES: No cyanosis, clubbing, or pedal edema. NEUROLOGICAL: Gross neurological examination did not reveal any focal deficits. SKIN: Warm and dry, no rashes. - Labs CBC & Chem 7: 03/28/24 04:32 03/28/24 04:32 Labs: Abnormal Lab Results - Last 24 Hours (Table) 03/27/24 03/27/24 03/28/24 Range/Units 12:09 18: 04:32 Eosinophils # (0.04-0.35) X 10*3/uL Carbon Dioxide (21.6-31.8) mmol/L Glucose (70-110) mg/dL POC Glucose (mg/dL) 246 H 202 H (70-110) mg/dL Hemoglobin A1c 7.2 H (<=6.0) % Albumin/Globulin Ratio (1.60-3.17) Ratio 03/28/24 03/28/24 Range/Units 04:32 04:32 Eosinophils # 0.43 H (0.04-0.35) X 10*3/uL Carbon Dioxide 20.3 L (21.6-31.8) mmol/L Glucose 129 H (70-110) mg/dL POC Glucose (mg/dL) (70-110) mg/dL Hemoglobin A1c (<=6.0) % Albumin/Globulin Ratio 1.46 L (1.60-3.17) Ratio Assessment and Plan Assessment: Increased generalized weakness, multiple falls Dehydration Grieving, recently filed for divorce approximately 6 weeks ago Depression secondary to the above Vertebral body compression fractures of T11, T12, L1, in a patient with history of falls Multilevel lumbar spondylosis Chronic hypoxic respiratory failure, wears O2 at home, 2.5 L. Son reports patient at times increases it up to 5 L. COPD Chronic systolic CHF, ischemic cardiomyopathy, EF 35 to 40% (12/31), stable Mild to moderate mitral regurgitation History of CVA with residual left-sided weakness Diabetes mellitus, hemoglobin A1c 7.2 Hypertension Hyperlipidemia CAD, hx of CABG/AVR History of rheumatic fever Plan: Continue on current medication regimen ,monitoring and symptomatic treatment. Home meds reviewed and resumed. IV fluids discontinued. Lantus insulin initiated with close monitoring of Accu-Cheks. PT/OT consulted, potential subacute rehab.Discussed plan of care options with both son and patient at bedside ,as potential daily PT /OT at subacute rehab, hospice. Currently looking at subacute rehab. Revisit plan of care in a.m., pending PT/OT recommendations. Case management consulted. The impression and plan of care has been dictated as directed. : I performed a history and examination of this patient, discussed the same with the dictator. I agree with the dictator's note ,documented as a scribe. Any additional findings or plans will be noted.
[2024-03-28 12:01] LABS: Glucose,Whole Blood 175 mg/dL (70-110)
[2024-03-28] MEDS: INSULIN DETEMIR (LEVEMIR) 100 UNIT/ML SYR SQ SCH (12:34)
[2024-03-28] MEDS: DONEPEZIL 10 MG TAB PO SCH (12:34)
[2024-03-28] MEDS: CLOPIDOGREL 75 MG TAB PO SCH (12:35)
[2024-03-28] MEDS: ESCITALOPRAM 20 MG TAB PO SCH (12:35)
[2024-03-28] MEDS: LOSARTAN 25 MG TAB PO SCH (12:35)
[2024-03-28 17:00] LABS: Glucose,Whole Blood 217 mg/dL (70-110)
[2024-03-28] MEDS: SYMBICORT 160-4.5 MCG INHALER INHALATION SCH (19:57)
[2024-03-28 20:20] LABS: Glucose,Whole Blood 155 mg/dL (70-110)
[2024-03-28] MEDS: ATORVASTATIN 20 MG TAB PO SCH (20:43)
[2024-03-28] MEDS: ISOSORBIDE MONONITRATE ER 30 MG TAB.ER.24H PO SCH (20:43)
[2024-03-28] MEDS: ASPIRIN 81 MG PO SCH (20:43)
[2024-03-28] MEDS: OXYBUTYNIN 10 MG TAB.ER.24 PO SCH (20:43)
[2024-03-28] MEDS ORDERED: INSULIN DETEMIR (LEVEMIR) 100 UNIT/ML SYR SQ SCH (21:00)
[2024-03-29 05:45] LABS: Glucose,Whole Blood 158 mg/dL (70-110)
[2024-03-29] MEDS: SENNOSIDES-DOCUSATE SODIUM 1 EACH TAB PO SCH (09:13)
--- NOTE | 2024-03-29 10:15 | P.PN ---
Subjective Progress Note Date: 03/29/24 This is an 88-year-old gentleman admitted with dehydration, weakness, falls, undergoing major personal stress-anger/depression -grieving over recently filed for divorce 6 weeks prior, with history of vertebral body compression fractures of T11, T12, L1, multilevel lumbar spondylosis-uses walker for gait dysfunction, chronic hypoxic respiratory failure, COPD, chronic systolic CHF, ischemic cardiomyopathy, CVA with residual left-sided weakness, diabetes mellitus, hypertension, hyperlipidemia, CAD, CABG/AVR,, rheumatic fever multiple medical issues. Evaluated by psychiatry, reporting patient is alert and oriented x 3 with no significant signs of dementia, memory impairment or cognitive impairment. Recommendations noted. 03/29/2024 maintained on low-dose Seroquel at night as recommended per psychiatry. Feeling better this morning. Did not sleep well secondary to hospital environment. Denies chest pain, palpitations or shortness of breath. Diet intake, renal function improving. blood sugars controlled. Objective - Vital Signs Vital signs: Vital Signs Temp 97.4 F L 03/29/24 07:05 Pulse 62 03/29/24 07:05 Resp 16 03/29/24 07:05 BP 111/60 03/29/24 07:05 Pulse Ox 95 03/29/24 09:25 FiO2 Intake & Output 03/28/24 03/29/24 03/29/24 18:59 06:59 18:59 Intake Total 120 240 Output Total 600 Balance -480 240 Intake: Oral 120 240 Output: Urine 600 Other: Voiding Method External Catheter External Catheter External Catheter # Voids 1,000 # Bowel Movements 0 - Exam GENERAL: Alert and oriented x 3, NAD. HEENT: Normocephalic, pupils are round and equal, reacting to light. EOMI. No scleral icterus. No conjunctival pallor. CARDIOVASCULAR: S1 and S2 present. Systolic murmur. PULMONARY: Unlabored, equal air entry, essentially clear to auscultation with bilateral bases diminished. ABDOMEN: Soft, nontender, nondistended, no guarding. Positive bowel sounds. EXTREMITIES: No cyanosis, clubbing, or pedal edema. NEUROLOGICAL: Gross neurological examination did not reveal any focal deficits. SKIN: Warm and dry, no rashes. - Labs CBC & Chem 7: 03/28/24 04:32 03/28/24 04:32 Labs: Abnormal Lab Results - Last 24 Hours (Table) 03/28/24 03/28/24 03/28/24 Range/Units 12:00 16:59 20:18 POC Glucose (mg/dL) 175 H 217 H 155 H (70-110) mg/dL 03/29/24 Range/Units 05:41 POC Glucose (mg/dL) 158 H (70-110) mg/dL Assessment and Plan Assessment: Increased generalized weakness, multiple falls Dehydration, improving Grieving, recently filed for divorce approximately 6 weeks ago Depression secondary to the above Vertebral body compression fractures of T11, T12, L1, in a patient with history of falls Multilevel lumbar spondylosis Chronic hypoxic respiratory failure, wears O2 at home, 2.5 L. Son reports patient at times increases it up to 5 L. COPD Chronic systolic CHF, ischemic cardiomyopathy, EF 35 to 40% (12/31), stable Mild to moderate mitral regurgitation History of CVA with residual left-sided weakness Diabetes mellitus, hemoglobin A1c 7.2 Hypertension Hyperlipidemia CAD, hx of CABG/AVR History of rheumatic fever Plan: Continue on current medication regimen ,monitoring and symptomatic treatment. PT/OT. ambulation with assistance. Evaluated by PT recommending subacute rehab at discharge. Son and [id number] at bedside. Plan of care discussed. Insurance authorization requires 3 night stay, patient will be discharged morning to subacute rehab of choice-currently they are [facility]icing [facility]. The impression and plan of care has been dictated as directed. : I performed a history and examination of this patient, discussed the same with the dictator. I agree with the dictator's note ,documented as a scribe. Any additional findings or plans will be noted.
[2024-03-29 12:15] LABS: Glucose,Whole Blood 118 mg/dL (70-110)
[2024-03-29 17:23] LABS: Glucose,Whole Blood 154 mg/dL (70-110)
[2024-03-29 20:03] LABS: Glucose,Whole Blood 165 mg/dL (70-110)
[2024-03-30 05:58] LABS: Glucose,Whole Blood 147 mg/dL (70-110)
--- NOTE | 2024-03-30 09:01 | P.PN ---
Subjective Progress Note Date: 03/30/24 This is an 88-year-old gentleman admitted with dehydration, weakness, falls, undergoing major personal stress-anger/depression -grieving over recently filed for divorce 6 weeks prior, with history of vertebral body compression fractures of T11, T12, L1, multilevel lumbar spondylosis-uses walker for gait dysfunction, chronic hypoxic respiratory failure, COPD, chronic systolic CHF, ischemic cardiomyopathy, CVA with residual left-sided weakness, diabetes mellitus, hypertension, hyperlipidemia, CAD, CABG/AVR,, rheumatic fever multiple medical issues. Evaluated by psychiatry, reporting patient is alert and oriented x 3 with no significant signs of dementia, memory impairment or cognitive impairment. Recommendations noted. 03/29/2024 maintained on low-dose Seroquel at night as recommended per psychiatry. Feeling better this morning. Did not sleep well secondary to hospital environment. Denies chest pain, palpitations or shortness of breath. Diet intake, renal function improving. blood sugars controlled. 03/30/24. Pt seen and evaluated at bedside, he is feeling about the same today, denies chest pain, shortness of breath, BS controlled. He did have some confusion last night which resolved with his seroquel. He is working with PT Objective - Vital Signs Vital signs: Vital Signs Temp 98.1 F 03/30/24 07:46 Pulse 66 03/30/24 07:46 Resp 17 03/30/24 07:46 BP 102/60 03/30/24 07:46 Pulse Ox 93 L 03/30/24 08:27 FiO2 Intake & Output 03/29/24 03/30/24 03/30/24 18:59 06:59 18:59 Intake Total 590 720 Output Total 1050 Balance 590 -330 Intake: Oral 590 720 Output: Urine 1050 Other: Voiding Method External Catheter # Voids 2 - Exam elderly male in NAD RRR CTAB NTND - Labs CBC & Chem 7: 03/28/24 04:32 03/28/24 04:32 Labs: Abnormal Lab Results - Last 24 Hours (Table) 03/29/24 03/29/24 03/29/24 Range/Units 12:14 17:21 20:02 POC Glucose (mg/dL) 118 H 154 H 165 H (70-110) mg/dL 03/30/24 Range/Units 05:57 POC Glucose (mg/dL) 147 H (70-110) mg/dL Assessment and Plan Plan: Continue with current regimen, monitor oxygen and vitals, continue to work with PT, OT. Discharge planning in progress expect for tomorrow
--- NOTE | 2024-03-30 10:30 | CDI ---
Documentation Clarification Form Date: 03/30/2024 09:46:39 AM From: Lety Avila RN CCDS Phone: [phone] Admit Date: 03/28/2024 08:51:00 AM Patient Name: Jermaine Hitchcock Visit Number: [id number] Discharge Date: ATTENTION: The Clinical Documentation Specialists (CDI) and [facility] Coding Staff appreciate your assistance in clarifying documentation. Please respond to the clarification below the line at the bottom and electronically sign. The CDI & [facility] Coding staff will review the response and follow-up if needed. Please note: Queries are made part of the Legal Health Record. If you have any questions, please contact the author of this message via ITS. Doctor: Shaquille Bravo There is documentation of generalized weakness and multiple falls, date, 03/29, Medicine note. Additional clarification is requested. History/Risk Factors: 88 year old male presents to the ED with generalized weakness and unable to take care of himself. Medical history: CHF, CVA, HTN and DM. 03/27, HP. Clinical Indicators: 03/27, HP: Presented to the ER for confusion and debility 03/28, PT Consult: Patient pleasant and cooperative with PT. Patient able to follow simple commands. Patient presents with minimal generalized weakness with decreased functional mobility. Requires minimal assist to come to standing. Denies lightheadedness or dizziness with mobility activity. Ambulates with short shuffling steps with minimal assist required for balance. Patient reports increased Lower extremity fatigue, requiring to sit down after 10 feet ambulation. Discharge charge recommendations: Sub-acute Rehabilitation with 24/7 care. 03/30 OT Consult: Patient minimal physical access services assistant with supine to sit. Patient moderate physical assist with LB dressing. Patient minimal assist with sit to standing and minimal physical assist with use of rolling walker for 30 functional mobility. Patient is unsteady limited by pain. Recommend rehab. Treatment: Rolling walker, PT consult see above, OT consult see above Can you please clarify increased generalized weakness, multiple falls? [ X ] Age related debility [ ] Other, please specify [ ] Unable to determine (Template Last Revised: July 2020) MTDD
[2024-03-30 12:01] LABS: Glucose,Whole Blood 276 mg/dL (70-110)
[2024-03-30 17:10] LABS: Glucose,Whole Blood 157 mg/dL (70-110)
[2024-03-30 19:45] LABS: Glucose,Whole Blood 161 mg/dL (70-110)
[2024-03-31 06:11] LABS: Glucose,Whole Blood 182 mg/dL (70-110)
[2024-03-31 08:33] VITALS: BP 114/60; PULSE 72; RESP 17; TEMP 98.4
--- NOTE | 2024-03-31 09:58 | P.DS ---
Providers Date of admission: 03/28/24 08:51 Expected date of discharge: 03/31/24 Attending physician: Shaquille Bravo MD Consults: 03/27/24 01:15 Consult Physician Routine Consulting Provider: Navjot Vieyra Consult Reason/Comments: divorce,ams Do you want consulting provider notified?: Yes Primary care physician: Shaquille Bravo MD Hospital Course: This is an 88-year-old gentleman admitted with dehydration, weakness, falls, undergoing major personal stress-anger/depression -grieving over recently filed for divorce 6 weeks prior, with history of vertebral body compression fractures of T11, T12, L1, multilevel lumbar spondylosis-uses walker for gait dysfunction, chronic hypoxic respiratory failure, COPD, chronic systolic CHF, ischemic cardiomyopathy, CVA with residual left-sided weakness, diabetes mellitus, hypertension, hyperlipidemia, CAD, CABG/AVR,, rheumatic fever multiple medical issues. Evaluated by psychiatry, reporting patient is alert and oriented x 3 with no significant signs of dementia, memory impairment or cognitive impairment. Recommendations noted. 03/29/2024 maintained on low-dose Seroquel at night as recommended per psychiatry. Feeling better this morning. Did not sleep well secondary to hospital environment. Denies chest pain, palpitations or shortness of breath. Diet intake, renal function improving. blood sugars controlled. 03/30/24. Pt seen and evaluated at bedside, he is feeling about the same today, denies chest pain, shortness of breath, BS controlled. He did have some confusion last night which resolved with his seroquel. He is working with PT On day of discharge pt feeling well, denies chest pain, shortness of breath, chills, confusion. He is discharged in stable condition and recommended to follow up with his PCP. Patient Condition at Discharge: Fair Plan - Discharge Summary New Discharge Prescriptions: Continue Isosorbide Mononitrate ER [Imdur] 30 mg PO HS Clopidogrel [Plavix] 75 mg PO DAILY Empagliflozin [Jardiance] 10 mg PO DAILY Donepezil [Aricept] 10 mg PO DAILY Tolterodine ER [Detrol LA] 4 mg PO HS Rosuvastatin [Crestor] 10 mg PO Q48H Losartan [Cozaar] 25 mg PO DAILY Ergocalciferol (Vitamin D2) [Drisdol (50,000 Iu)] 1,250 mcg PO Q7D Budesonide/Formoterol Fumarate [Symbicort 160-4.5 Mcg Inhaler] 1 puff INHALATION RT-BID Aspirin EC [Ecotrin Low Dose] 81 mg PO HS Ipratropium-Albuterol Nebulize [Duoneb 0.5 mg-3 mg/3 ml Soln] 3 ml INHALATION RT-TID PRN PRN Reason: Shortness Of Breath Escitalopram [Lexapro] 20 mg PO DAILY QUEtiapine FUMARATE [SEROquel] 25 mg PO HS Changed Insulin Glargine,Hum.rec.anlog [Lantus Solostar Pen] 20 units SQ HS #0 Discharge Medication List Aspirin EC [Ecotrin Low Dose] 81 mg PO HS 05/14/22 [History] Clopidogrel [Plavix] 75 mg PO DAILY 05/14/22 [History] Isosorbide Mononitrate ER [Imdur] 30 mg PO HS 05/14/22 [History] Donepezil [Aricept] 10 mg PO DAILY 01/15/24 [History] Empagliflozin [Jardiance] 10 mg PO DAILY 01/15/24 [History] Budesonide/Formoterol Fumarate [Symbicort 160-4.5 Mcg Inhaler] 1 puff INHALATION RT-BID 03/27/24 [History] Ergocalciferol (Vitamin D2) [Drisdol (50,000 Iu)] 1,250 mcg PO Q7D 03/27/24 [History] Escitalopram [Lexapro] 20 mg PO DAILY 03/27/24 [History] Ipratropium-Albuterol Nebulize [Duoneb 0.5 mg-3 mg/3 ml Soln] 3 ml INHALATION RT-TID PRN 03/27/24 [History] Losartan [Cozaar] 25 mg PO DAILY 03/27/24 [History] QUEtiapine FUMARATE [SEROquel] 25 mg PO HS 03/27/24 [History] Rosuvastatin [Crestor] 10 mg PO Q48H 03/27/24 [History] Tolterodine ER [Detrol LA] 4 mg PO HS 03/27/24 [History] Insulin Glargine,Hum.rec.anlog [Lantus Solostar Pen] 20 units SQ HS #0 03/31/24 [Rx] Follow up Appointment(s)/Referral(s): Shaquille Bravo MD [Primary Care Provider] - 1-2 days Discharge Disposition: TRANSFER TO SNF/ECF
[2024-03-31 12:27] LABS: Glucose,Whole Blood 163 mg/dL (70-110)
== END 2024-03-31 14:27 | DRG 884 ==
LOC: EC 21:19 → 6NMEDSUR 03-27 01:15 → OBSVTOIN 03-28 08:51 → 6NMEDSUR 03-30 02:28
PROVIDERS: ADMIT Family Medicine; ATTEND Family Medicine
DX: R54 Age-related physical debility (principal); J96.11 Chronic respiratory failure with hypoxia; I50.22 Chronic systolic (congestive) heart failure; I69.354 Hemiplegia and hemiparesis following cerebral infarction affecting left non-dominant side; M47.896 Other spondylosis, lumbar region; E86.0 Dehydration; R29.6 Repeated falls; F32.A Depression, unspecified; I25.5 Ischemic cardiomyopathy; I34.0 Nonrheumatic mitral (valve) insufficiency; E78.5 Hyperlipidemia, unspecified; J44.9 Chronic obstructive pulmonary disease, unspecified; M47.816 Spondylosis without myelopathy or radiculopathy, lumbar region; I11.0 Hypertensive heart disease with heart failure; E11.9 Type 2 diabetes mellitus without complications; R50.9 Fever, unspecified; I25.10 Atherosclerotic heart disease of native coronary artery without angina pectoris; Z95.1 Presence of aortocoronary bypass graft; Z79.02 Long term (current) use of antithrombotics/antiplatelets; Z79.82 Long term (current) use of aspirin; Z79.84 Long term (current) use of oral hypoglycemic drugs; Z79.899 Other long term (current) drug therapy; Z91.81 History of falling
CPT/HCPCS: 36415; 70450; 71046; 80053; 80143; 80179; 80306; 80320; 81003; 82140; 83036; 83735; 84100; 84484; 85025; 85610; 85730; 93005; 94640; 94760; 96361; 96374; 99285